=== PATIENT | male | born 1960 | race African-American/Black ===

== ENCOUNTER 2019-06-17 16:37 | Inpatient (IN) | payer BC ==
[2019-06-17] MEDS ORDERED: ACETAMINOPHEN 1000 MG/100 ML VIAL (NON FORMULARY) IVPB ONE (18:07)
--- NOTE | 2019-06-17 18:15 | PDOC ---
History of Present Illness - General Chief Complaint: Pain Stated Complaint: PAIN ON RIGHT SIDE Time Seen by Provider: 06/17/19 17:19 History Source: Patient Exam Limitations: No Limitations - History of Present Illness Initial Comments: 06/17/19 18:11 59 yo M with a hx of DM, HTN, and abnormal stress test 2 years ago (with no follow up) presents to the emergency department with left chest wall pain and RLQ pain that has been ongoing for 2 days. Per the patient, the left chest wall pain was gradual in onset, sharp in nature, consistent with his previous episodes of when he has "gas" and is non radiating. Denies worsening of pain with exertion. Denies concurrent SOB, lightheadedness, headache, and nausea/ vomiting. Concurrently, he is also having sharp RLQ pain without radiation that worsens with movement. Denies dysuria, hematuria, flank pain, back pain (lower and upper), constipation, hematochezia, and melena. Denies abdominal surgeries. Allergies: NKDA Past History - Past Medical History Allergies/Adverse Reactions: Allergies Allergy/AdvReac Type Severity Reaction Status Date / Time No Known Allergies Allergy Verified 06/17/19 16:45 Home Medications: Ambulatory Orders Acetaminophen [Tylenol .Regular Strength -] 325 mg PO Q6H PRN tablet 06/25/19 Amox-Tr/K Cl [Augmentin 875-125mg Tablet -] 1 tab PO BID@0800,1730 #20 tablet Miscellaneous Medical Supply [Glucometer Device] 1 each SQ ASDIR #1 kit Miscellaneous [employer] [Glucometer Test Strips #100] 1 each SQ ASDIR #1 box 06/25/19 Miscellaneous Medical Supply [Lancets] 1 each SQ ASDIR #1 box 06/25/19 Miscellaneous Medical Supply [Outpatient Order] 1 each ASDIR #1 misc metFORMIN HCL [Glucophage -] 1,000 mg PO BID@0700,1630 #60 tablet 06/25/19 COPD: No Diabetes: Yes (non compliant over 1 yr) - Psycho Social/Smoking Cessation Hx Smoking History: Never smoked Review of Systems - Review of Systems Able to Perform ROS?: Yes Is the patient limited Niuean proficient: No Constitutional: No: Chills, Diaphoresis, Fever, Weakness HEENTM: No: Eye Pain, Ear Pain, Nose Pain, Throat Pain, Mouth Pain Respiratory: No: Cough, Shortness of Breath, Hemoptysis Cardiac (ROS): Yes: Chest Pain. No: Lightheadedness, Palpitations, Chest Tightness ABD/GI: Yes: Abdominal cramping (rlq). No: Constipated, Diarrhea, Nausea, Poor Appetite, Poor Fluid Intake, Rectal Bleeding, Vomiting, Tarry Stools : No: Burning, Dysuria, Discharge, Flank Pain, Hematuria, Incontinence Musculoskeletal: No: Back Pain, Joint Pain, Neck Pain Integumentary: No: Bruising, Erythema, Rash Neurological: No: Headache, Ataxia Psychiatric: No: Change in Appetite Endocrine: No: Unexplained Weight Loss Hematologic/Lymphatic: No: Anemia *Physical Exam - Vital Signs Last Vital Signs Temp Pulse Resp BP Pulse Ox 98.2 F 125 H 20 136/91 100 06/17/19 16:42 06/17/19 16:42 06/17/19 16:42 06/17/19 16:42 06/17/19 16:42 - Physical Exam General Appearance: Yes: Nourished, Appropriately Dressed. No: Apparent Distress, Intoxicated HEENT: positive: EOMI, DORINA, Normal Voice, Symmetrical, Pharynx Normal, Hearing Grossly Normal. negative: Pale Conjunctivae, Scleral Icterus (R), Scleral Icterus (L), Muffled/Hoarse voice, Pharyngeal Erythema, Tonsillar Exudate, Tonsillar Erythema, Nasal Congestion, Rhinorrhea, Sinus Tenderness, Excessive drooling Neck: positive: Trachea midline, Supple. negative: Tender, Lymphadenopathy (R) , Lymphadenopathy (L), Tender lateral, Tender midline Respiratory/Chest: positive: Lungs Clear, Normal Breath Sounds. negative: Chest Tender, Respiratory Distress, Accessory Muscle Use Cardiovascular: positive: Regular Rhythm, S1, S2, Tachycardia. negative: Systolic Murmur Gastrointestinal/Abdominal: positive: Normal Bowel Sounds, Tender (rlq), Flat, Soft. negative: Guarding, Rebound Lymphatic: negative: Adenopathy Musculoskeletal: positive: Normal Inspection. negative: CVA Tenderness, Vertebral Tenderness Extremity: positive: Normal Capillary Refill, Normal Inspection, Normal Range of Motion. negative: Tender, Swelling, Calf Tenderness Integumentary: positive: Normal Color, Dry, Warm Neurologic: positive: Fully Oriented, Alert, Normal Mood/Affect ED Treatment Course - LABORATORY CBC & Chemistry Diagram: 06/25/19 07:18 06/25/19 07:18 - RADIOLOGY Radiology Studies Ordered: Category Date Time Status CHEST X-RAY PORTABLE* [RAD] Stat Radiology 06/17/19 18:06 Ordered Medical Decision Making - Medical Decision Making 59 yo M with a hx of DM, HTN, and abnormal stress test 2 years ago (with no follow up) presents to the emergency department with left chest wall pain and RLQ pain that has been ongoing for 2 days. Initial vitals: Initial Vital Signs Temp Pulse Resp BP Pulse Ox 98.2 F 125 H 20 136/91 100 06/17/19 16:42 06/17/19 16:42 06/17/19 16:42 06/17/19 16:42 06/17/19 16:42 Work up: ddx: patient presents with multiple complaints. rlq pain ddx: appendicitis vs UTI vs nephrolithiasis vs colitis vs msk strain vs incarcerated hernia. No hernia palpated on examination and focal tenderness in the RLQ. will obtain labs and CTAP. Chest pain ddx: ACS vs PNA vs costrochondritis vs pleuritis Laboratory Tests 06/17/19 06/17/19 06/17/19 18:30 18:30 18:30 WBC 16.5 H RBC 4.15 Hgb 13.4 Hct 40.0 MCV 96.4 H MCH 32.3 MCHC 33.5 RDW 13.1 Plt Count 352 MPV 7.7 Absolute Neuts (auto) 12.8 H Neutrophils % 77.5 Lymphocytes % 12.7 Monocytes % 9.3 Eosinophils % 0.3 Basophils % 0.2 Nucleated RBC % 0 PT with INR INR Sodium 134 L Potassium 4.2 Chloride 98 Carbon Dioxide 28 Anion Gap 9 BUN 13.7 Creatinine 1.0 Est GFR (CKD-EPI)AfAm 94.39 Est GFR (CKD-EPI)NonAf 81.44 Random Glucose 177 H Lactic Acid 1.5 Calcium 9.0 Magnesium 1.7 L Total Bilirubin 0.6 AST 14 L ALT 20 Alkaline Phosphatase 127 H Creatine Kinase 101 Troponin I < 0.02 Total Protein 8.1 Albumin 3.9 06/17/19 18:30 WBC RBC Hgb Hct MCV MCH MCHC RDW Plt Count MPV Absolute Neuts (auto) Neutrophils % Lymphocytes % Monocytes % Eosinophils % Basophils % Nucleated RBC % PT with INR 12.80 INR 1.08 Sodium Potassium Chloride Carbon Dioxide Anion Gap BUN Creatinine Est GFR (CKD-EPI)AfAm Est GFR (CKD-EPI)NonAf Random Glucose Lactic Acid Calcium Magnesium Total Bilirubin AST ALT Alkaline Phosphatase Creatine Kinase Troponin I Total Protein Albumin Leukocytosis noted on examination hypomagnesemia and normal lactic acid CT findings consistent with likely acute ruptured appendicitis with significant phlegmonous changes in the right lower quadrant mesenteric fat, normal visualization of the cecum and terminal ileum with nonvisualization of the appendix which is likely ruptured, enhancement in the base of the appendix is suspected, no appendicolith is seen. No signs of free air or free fluid in the deep pelvis with no periappendiceal loculated collections observed in the abdomen or pelvis. Inflammatory phlegmonous fluid is seen tracking in the posterior right retroperitoneum along the anterior margin of the right psoas muscle extending inferiorly into the right paracolic gutter. Dr. Ayala was contacted and made aware of the patient. patient started on zosyn and given morphine for analgesia. Patient to be admitted for ruptured appendicitis requiring IV abx and possible surgical intervention. eKG: sinus tachycardia with incomplete rbbb with no twi. no st elevations or depression cxr: within normal limits Dispo: Admit Discharge - Discharge Information Problems reviewed: Yes Clinical Impression/Diagnosis: Appendicitis - Follow up/Referral - Patient Discharge Instructions - Post Discharge Activity
[2019-06-17] MEDS ORDERED: ACETAMINOPHEN INJECTION 100 ML IVPB ONE (18:23)
[2019-06-17] MEDS ORDERED: SODIUM CHLORIDE 1,000 ML IV STA (18:39)
[2019-06-17] MEDS ORDERED: SODIUM CHLORIDE 0.9% 1000 ML INFUS.BAG IV ONE (19:15)
--- NOTE | 2019-06-17 19:15 | PDOC ---
Attending Attestation - Resident Resident Name: GenMilo - ED Attending Attestation I have performed the following: I have examined & evaluated the patient, The case was reviewed & discussed with the resident, I agree w/resident's findings & plan, Exceptions are as noted - HPI HPI: 06/17/19 19:10 59 yo male h/o dm htn famil h/o dm here with cough uri sxs, and now rlq pain x 2 day. no n/v. does have nasal congestions. pain is worse with movement and walking. no change to bm. no other mod factors. did take excedrin for pain earlier mild relief. does drink etoh often, not daily. no h/o etoh withdrawal. in addition c/o left lat chest wall pain. cough. thought it was gas. does have sick contact of nephew with cough congestion flu like sxs. no travel. no other complaints - Physicial Exam PE: 06/17/19 19:12 awake alert NAD awake lung clear bilat heart reg tachycardia. abd soft rlq ttp no rebound no guard. ext wwp. no cva tenderness. awake alert oriented x 3. - Medical Decision Making 06/17/19 19:13 59 yo male here with rlq pain. gaby pain. differential flu, cxr r/o pneumonia, cardiac work up. ct a/p r/o appendicitis. will trent require admission to tele r/o acs.
[2019-06-17 20:02] LABS: BASO % 0.2 % (0-2.0); EOS % 0.3 % (0-4.5); HEMOGLOBIN 13.4 GM/dL (11.7-16.9); LYMPH % 12.7 % (8-40); MCH 32.3 pg (25.7-33.7); MCHC 33.5 g/dl (32.0-35.9); MEAN CELL VOLUME 96.4 fl (80-96); MEAN PLT VOLUME 7.7 fl (7.5-11.1); MONO % 9.3 % (3.8-10.2); NEUT % 77.5 % (42.8-82.8); PLATELET COUNT 352 K/MM3 (134-434); RBC 4.15 M/mm3 (4.00-5.60); RDW 13.1 % (11.9-15.9); WHITE BLOOD COUNT 16.5 K/mm3 (4.0-10.0)
[2019-06-17] MEDS ORDERED: morphine CARPU-JECT 4 MG/1 ML DISP.SYRIN IVPUSH ONE (20:56)
[2019-06-17 20:57] LABS: INR 1.08 (0.83-1.09); PROTHROMBIN TIME (PATIENT) 12.8 SEC (9.7-13.0)
[2019-06-17] MEDS ORDERED: morphine SULFATE 4 MG/ML VIAL ONE (21:00)
[2019-06-17 21:30] LABS: ALBUMIN 3.9 g/dl (3.4-5.0); ALK PHOS 127 U/L (45-117); ANION GAP 9 MMOL/L (8-16); BILIRUBIN,TOTAL 0.6 mg/dL (0.2-1); BLOOD UREA NITROGEN 13.7 mg/dL (7-18); CHLORIDE 98 mmol/L (98-107); CO2 28 mmol/L (21-32); GLUCOSE,RANDOM 177 mg/dL (74-106); MAGNESIUM 1.7 mg/dL (1.8-2.4); POTASSIUM 4.2 mmol/L (3.5-5.1); SGOT/AST 14 U/L (15-37); SGPT/ALT 20 U/L (13-61); SODIUM 134 mmol/L (136-145); TOT PROT 8.1 g/dl (6.4-8.2)
[2019-06-17] MEDS ORDERED: PIPERACILLIN/TAZOB 4.5 GM 4.5 GM in DEXTROSE 5%-WATER 100 ML IVPB ONE (23:14)
[2019-06-18] MEDS ORDERED: PIPERACILLIN/TAZOB 4.5 GM 4.5 GM/100 ML BAG IVPB ONE (00:01)
[2019-06-18] MEDS: SODIUM CHLORIDE 1,000 ML IV SCH ×3 (00:10→23:15)
--- NOTE | 2019-06-18 00:18 | PN ---
Teaching Attending Note Name of Resident: Kailash Johnson ATTENDING PHYSICIAN STATEMENT I saw and evaluated the patient. I reviewed the resident's note and discussed the case with the resident. I agree with the resident's findings and plan as documented. SUBJECTIVE: 59-year-old male with history of diabetes, hypertension presenting complaining of left chest wall pain and right lower quadrant pain for 2 days. Sharp right lower quadrant pain without radiation that worsens with movement. Denies any dysuria, back pain, prior abdominal surgeries. OBJECTIVE: Last Vital Signs Temp Pulse Resp BP Pulse Ox 98.2 F 118 H 20 110/61 97 06/17/19 16:42 06/17/19 21:10 06/17/19 21:10 06/17/19 21:10 06/17/19 21:10 GENERAL: Well developed, well nourished. Awake and alert. No acute distress. HEENT: Normocephalic, atraumatic. PERRLA, EOMI. No conjunctival pallor. Sclera are non- icteric. Moist mucous membranes. Oropharynx is clear. NECK: Supple. Full ROM. No JVD. Carotid pulses 2+ and symmetric, without bruits. No thyromegaly. No lymphadenopathy. CARDIOVASCULAR: Regular rate and rhythm. No murmurs, rubs, or gallops. Distal pulses are 2+ and symmetric. PULMONARY: No evidence of respiratory distress. Lungs clear to auscultation bilaterally. No wheezing, rales or rhonchi. ABDOMINAL: Soft. Right lower quadrant tenderness to palpation Non-distended. No rebound or guarding. No organomegaly. Normoactive bowel sounds. MUSCULOSKELETAL Normal range of motion at all joints. No bony deformities or tenderness. No CVA tenderness. EXTREMITIES: No cyanosis. No clubbing. No edema. No calf tenderness. SKIN: Warm and dry. Normal capillary refill. No rashes. No jaundice. PSYCHIATRIC: Cooperative. Good eye contact. Appropriate mood and affect. Abnormal Lab Results 06/17/19 06/17/19 18:30 18:30 WBC 16.5 H MCV 96.4 H Absolute Neuts (auto) 12.8 H Sodium 134 L Random Glucose 177 H Magnesium 1.7 L AST 14 L Alkaline Phosphatase 127 H Imaging studies reviewed CT findings consistent with likely acute ruptured appendicitis with significant phlegmon minus changes in the right lower quadrant, normal visualization of cecum and terminal ileum with nonvisualization of the appendix which is likely ruptured. No signs of free air or free fluid in the deep pelvis with no periappendiceal loculated collections observed in abdomen or pelvis. Inflammatory phlegmonous fluid is seen tracking posterior right retroperitoneum along the anterior margin of the right psoas muscle extending inferiorly into the right paracolic gutter. ASSESSMENT AND PLAN: 59-year-old male with sepsis secondary to ruptured appendix with tachycardia, leukocytosis. Hyponatremia, hypomagnesemia, mildly elevated alkaline phosphatase. As per imaging on a call read, no free air was seen under diaphragm therefore low suspicion for overt perforation. Admit to [facility] N.p.o. IV fluid hydration Blood cultures x2 Morphine IV as needed Surgery consult for appendectomy PT, PTT, type and screen Zosyn IV empirically Infectious disease consultation Monitor vital signs closely EKG Supplement magnesium NovoLog sliding scale A1c Heparin subcutaneously for DVT prophylaxis
[2019-06-18 00:20] LABS: URINE APPEARANCE CLEAR; URINE BILIRUBIN NEGATIVE (NEGATIVE); URINE COLOR YELLOW; URINE KETONE TRACE (NEGATIVE)
[2019-06-18 00:21] LABS: URINE GLUCOSE (UA) 2+ (NEGATIVE); URINE LEUK ESTERASE NEGATIVE (NEGATIVE); URINE NITRITE NEGATIVE (NEGATIVE); URINE PROTEIN NEGATIVE (NEGATIVE)
--- NOTE | 2019-06-18 00:45 | HP ---
CHIEF COMPLAINT: RLQ abdominal pain for 2 days Lt sided chest pain that he has had for the past several months, more frequent for the past 5 days PCP: None HISTORY OF PRESENT ILLNESS: This is a 59 year old male with PMH of DM. He presented to the ER with complaints of RLQ abdominal pain for the past 2 days and intermittent left sided chest pain that he has had for the past several months, more frequent for the past 5 days. The abdominal pain was limited to the RLQ, sudden in onset, constant in frequency but varying in intensity between 5-7/10. He describes it as a sharp pain, non radiating, with no aggravated or alleviating factors. He took Motrin to help with the pain, which did not help with his symptoms. He endorses associated dizziness, and one episode of NBNB vomiting (which he attributes to consuming 2 shots of vodka on an empty stomach), but no fevers, chills, nausea, diarrhea, SOB, headaches, dysuria, or hematuria. He also endorses left sided chest pain for the past several months, but more frequent for the past 5 days. The episodes last a few seconds, brought on by exercise, and resolved by resting. He states that he has had a cold for the past 1 week, not associated with a cough or SOB. He has been taking Nyquil for the cold. He had a stress test done 2 years ago ([facility], located at [facility]). His physician called and asked him to make a [id number] appointment for abnormal stress test results, but he never followed up. The patient has a history of DM, and was started on metformin. He has not taken the metformin for the past several weeks because he believes it was making him lose weight. He does not monitor his glucose at home, does not see a cell support operator , and last saw an director of archives 2 years ago. He was last hospitalized for a left sided lip abscess 3 years ago. ER course was notable for: (1) Trop - (2) CT AP: Ruptured appendicitis, phlegmon formation, no free air (3) Surgery consulted, will see patient in AM (4) WBC 16.5, Zosyn started Recent Travel: denies PAST MEDICAL HISTORY: See HPI PAST SURGICAL HISTORY: None Social History: Smoking: A few cigars/month Alcohol: Few beers/ month Drugs: denies Allergies No Known Allergies Allergy (Verified 02/09/20 16:45) HOME MEDICATIONS: REVIEW OF SYSTEMS CONSTITUTIONAL: Absent: fever, chills, diaphoresis, generalized weakness, malaise, loss of appetite, weight change HEENT: Absent: rhinorrhea, nasal congestion, throat pain, throat swelling, difficulty swallowing, mouth swelling, ear pain, eye pain, visual changes CARDIOVASCULAR: chest pain Absent: chest pain, syncope, palpitations, irregular heart rate, lightheadedness , peripheral edema RESPIRATORY: Absent: cough, shortness of breath, dyspnea with exertion, orthopnea, wheezing, stridor, hemoptysis GASTROINTESTINAL: abdominal pain Absent: abdominal pain, abdominal distension, nausea, vomiting, diarrhea, constipation, melena, hematochezia GENITOURINARY: Absent: dysuria, frequency, urgency, hesitancy, hematuria, flank pain, genital pain MUSCULOSKELETAL: Absent: myalgia, arthralgia, joint swelling, back pain, neck pain SKIN: Absent: rash, itching, pallor HEMATOLOGIC/IMMUNOLOGIC: Absent: easy bleeding, easy bruising, lymphadenopathy, frequent infections ENDOCRINE: Absent: unexplained weight gain, unexplained weight loss, heat intolerance, cold intolerance NEUROLOGIC: Absent: headache, focal weakness or paresthesias, dizziness, unsteady gait, seizure, mental status changes, bladder or bowel incontinence PSYCHIATRIC: Absent: anxiety, depression, suicidal or homicidal ideation, hallucinations. PHYSICAL EXAMINATION Vital Signs - 24 hr 06/17/19 06/17/19 06/17/19 16:42 18:50 21:10 Temperature 98.2 F Pulse Rate 125 H Pulse Rate [ 118 H Left Radial] Respiratory 20 20 Rate Blood Pressure 136/91 Blood Pressure 110/61 [Right Arm] O2 Sat by Pulse 100 99 97 Oximetry (%) GENERAL: Awake, alert, and fully oriented, in no acute distress. HEAD: Normal with no signs of trauma. EYES: Pupils equal, round and reactive to light, extraocular movements intact, sclera anicteric, conjunctiva clear. No lid lag. EARS, NOSE, THROAT: Ears normal, nares patent, oropharynx clear without exudates. Moist mucous membranes. NECK: Normal range of motion, supple without lymphadenopathy, JVD, or masses. LUNGS: Breath sounds equal, clear to auscultation bilaterally. No wheezes, and no crackles. No accessory muscle use. HEART:Tachycardic with regular rhythm, no murmurs ABDOMEN: Soft, tender to palpation in RLQ, no rebound tenderness, Rovsing's +, Oh's - MUSCULOSKELETAL: Normal range of motion at all joints. No bony deformities or tenderness. No CVA tenderness. UPPER EXTREMITIES: 2+ pulses, warm, well-perfused. No cyanosis. No clubbing. No peripheral edema. LOWER EXTREMITIES: 2+ pulses, warm, well-perfused. No calf tenderness. No peripheral edema. NEUROLOGICAL: Cranial nerves II-XII intact. Normal speech PSYCHIATRIC: Cooperative. Good eye contact. Appropriate mood and affect. SKIN: Warm, dry, normal turgor, no rashes or lesions noted, normal capillary refill. Laboratory Results - last 24 hr 06/17/19 06/17/19 06/17/19 18:30 18:30 18:30 WBC 16.5 H RBC 4.15 Hgb 13.4 Hct 40.0 MCV 96.4 H MCH 32.3 MCHC 33.5 RDW 13.1 Plt Count 352 MPV 7.7 Absolute Neuts (auto) 12.8 H Neutrophils % 77.5 Lymphocytes % 12.7 Monocytes % 9.3 Eosinophils % 0.3 Basophils % 0.2 Nucleated RBC % 0 PT with INR INR Sodium 134 L Potassium 4.2 Chloride 98 Carbon Dioxide 28 Anion Gap 9 BUN 13.7 Creatinine 1.0 Est GFR (CKD-EPI)AfAm 94.39 Est GFR (CKD-EPI)NonAf 81.44 Random Glucose 177 H Lactic Acid 1.5 Calcium 9.0 Magnesium 1.7 L Total Bilirubin 0.6 AST 14 L ALT 20 Alkaline Phosphatase 127 H Creatine Kinase 101 Troponin I < 0.02 Total Protein 8.1 Albumin 3.9 Urine Color Urine Appearance Urine pH Ur Specific [place] Urine Protein Urine Glucose (UA) Urine Ketones Urine Blood Urine Nitrite Urine Bilirubin Urine Urobilinogen Ur Leukocyte Esterase Influenza A (Rapid) Influenza B (Rapid) 06/17/19 06/17/19 06/17/19 18:30 20:58 23:14 WBC RBC Hgb Hct MCV MCH MCHC RDW Plt Count MPV Absolute Neuts (auto) Neutrophils % Lymphocytes % Monocytes % Eosinophils % Basophils % Nucleated RBC % PT with INR 12.80 INR 1.08 Sodium Potassium Chloride Carbon Dioxide Anion Gap BUN Creatinine Est GFR (CKD-EPI)AfAm Est GFR (CKD-EPI)NonAf Random Glucose Lactic Acid Calcium Magnesium Total Bilirubin AST ALT Alkaline Phosphatase Creatine Kinase Troponin I Total Protein Albumin Urine Color Yellow Urine Appearance Clear Urine pH 7.0 Ur Specific [place] 1.064 H Urine Protein Negative Urine Glucose (UA) 2+ H Urine Ketones Trace H Urine Blood Negative Urine Nitrite Negative Urine Bilirubin Negative Urine Urobilinogen 1.0 Ur Leukocyte Esterase Negative Influenza A (Rapid) Negative Influenza B (Rapid) Negative ASSESSMENT/PLAN: 59 year old male with PMH of DM. He presented to the ER with complaints of RLQ abdominal pain for the past 2 days and intermittent left sided chest pain that he has had for the past several months, more frequent for the past 5 days. Found to have perforated appendicitis on CT AP. #Perforated appendicitis - CT AP: Ruptured appendicitis, phlegmon formation, no free air - Appendicial perforation with phlegmon and with no signs of free perforation, peritonitis, or abscess may initially be managed conservatively - Surgery consulted (Dr. Ayala), will see patient in AM - NPO with IV fluids, started on N/S @ 120. Fond to be hypotensive arondd 90/60 at 3AM, given 1L N/S bolus After 2L N/S, B/P improved to 110/90s, pt. still complaining of pain, Dr. Shelby called and reported to be on his way - Zosyn 3.375gm Q6H started - Blood, urine cx ordered - Morphine 4mg Q4H ordered - PT, PTT, Type and screen ordered for possible surgery - ID consulted #Chest pain - Trop negative, EKG shows sinus tachy with no ST, T wave abnormalities - Will r/o ACS - Hx of abnormal stress test - Tele monitoring - Cardio consult placed - Repeat EKG and trops AM #Hx of DM - BGM, ISS ACHS - HbA1c ordered #FEN - IV N/S @ 120, given 1L bolus - Mg 1.7, given 1gm Mg - NPO until surgery consult #DVT - SCDs, Holding chemical AC for possible surgery in AM Visit type - Emergency Visit Emergency Visit: Yes ED Registration Date: 06/17/19 Care time: The patient presented to the Emergency Department on the above date and was hospitalized for further evaluation of their emergent condition. - New Patient This patient is new to me today: Yes Date on this admission: 06/26/19 - Critical Care Critical Care patient: No ATTENDING PHYSICIAN STATEMENT I saw and evaluated the patient. I reviewed the resident's note and discussed the case with the resident. I agree with the resident's findings and plan as documented. SUBJECTIVE: OBJECTIVE: ASSESSMENT AND PLAN:
[2019-06-18] MEDS ORDERED: ACETAMINOPHEN 1000 MG/100 ML VIAL (NON FORMULARY) IVPB PRN (01:07)
[2019-06-18] MEDS ORDERED: MAGNESIUM SULF 50% (8.12 MEQ/2 ML-1 GM VIAL) IVPB ONE (01:45)
[2019-06-18] MEDS ORDERED: MAGNESIUM 1GM/D5W - 1 GM/100 ML IVPB IVPB ONE (02:15)
[2019-06-18] MEDS ORDERED: morphine SULFATE 4 MG/ML VIAL ONE (02:16)
[2019-06-18] MEDS ORDERED: VANCOMYCIN 1,000 MG in DEXTROSE 5%-WATER - 250 ML IVPB ONE (03:22)
[2019-06-18] MEDS ORDERED: SODIUM CHLORIDE 0.9% 500 ML INFUS.BAG IV ONE (03:24)
--- NOTE | 2019-06-18 03:25 | PDOC ---
*Physical Exam - Vital Signs Last Vital Signs Temp Pulse Resp BP Pulse Ox 101.4 F H 128 H 20 93/58 L 97 06/18/19 02:25 06/18/19 02:25 06/18/19 02:25 06/18/19 02:25 06/18/19 02:25 ED Treatment Course - LABORATORY CBC & Chemistry Diagram: 06/23/19 07:50 06/23/19 07:50 - ADDITIONAL ORDERS Additional order review: Laboratory Results 06/17/19 06/17/19 06/17/19 18:30 18:30 18:30 PT with INR 12.80 INR 1.08 Sodium 134 L Potassium 4.2 Chloride 98 Carbon Dioxide 28 Anion Gap 9 BUN 13.7 Creatinine 1.0 Est GFR (CKD-EPI)AfAm 94.39 Est GFR (CKD-EPI)NonAf 81.44 Random Glucose 177 H Lactic Acid 1.5 Calcium 9.0 Magnesium 1.7 L Total Bilirubin 0.6 AST 14 L ALT 20 Alkaline Phosphatase 127 H Creatine Kinase 101 Troponin I < 0.02 Total Protein 8.1 Albumin 3.9 06/17/19 18:30 RBC 4.15 MCV 96.4 H MCHC 33.5 RDW 13.1 MPV 7.7 Neutrophils % 77.5 Lymphocytes % 12.7 Monocytes % 9.3 Eosinophils % 0.3 Basophils % 0.2 - Medications Given in the ED: ED Medications Discontinued Medications Generic Name Dose Route Start Last Admin Trade Name Freq PRN Reason Stop Dose Admin Acetaminophen 1,000 mg 06/17/19 18:07 06/17/19 18:52 Ofirmev Injection - IVPB 06/17/19 18:08 1,000 mg ONCE ONE Administration Sodium Chloride 1,000 mls @ 1,000 mls/hr 06/17/19 18:39 06/17/19 18:53 Normal Saline - IV 06/17/19 19:38 1,000 mls/hr ASDIR STA Administration Piperacillin Sod/Tazobactam 100 mls @ 200 mls/hr 06/17/19 23:14 06/18/19 00: 10 Sod 4.5 gm/ Dextrose IVPB 06/17/19 23:43 200 mls/hr ONCE ONE Administration Protocol Magnesium Sulfate 1 gm 06/18/19 01:45 06/18/19 02:25 Magnesium Sulfate IVPB 06/18/19 01:46 1 gm ONCE ONE Administration Morphine Sulfate 4 mg 06/17/19 20:56 06/17/19 21:13 Morphine Injection - IVPUSH 06/17/19 20:57 4 mg ONCE ONE Administration Sodium Chloride 1,000 ml 06/17/19 19:15 06/17/19 21:13 Normal Saline - IV 06/17/19 19:16 1,000 ml ONCE ONE Administration Medical Decision Making - Medical Decision Making 06/18/19 03:24 Pt boarded in the ER; tachycardic hypotensive, ruptured appendix. Surg aware and hospitalists aware; however I see only zosyn given. I am adding VANCO 1g and NSS 1L. Febrile; he has ofirmev and zosyn on as Q6hr meds. 06/18/19 03:26 Pt has been admitted since before I came to the ER. Discharge - Discharge Information Problems reviewed: Yes Clinical Impression/Diagnosis: Appendicitis - Follow up/Referral - Patient Discharge Instructions - Post Discharge Activity
[2019-06-18] MEDS ORDERED: VANCOMYCIN 1 GRAM (PRE-DOCKED) 1,000 MG/250 ML BAG IVPB ONE (05:11)
[2019-06-18] MEDS ORDERED: SODIUM CHLORIDE 500 ML IV STA ×2 (05:29→06:02)
[2019-06-18] MEDS ORDERED: PIPERACILLIN/TAZOB 3.375 GM 3.375 GM/50 ML BAG IVPB ONE (06:11)
[2019-06-18] MEDS: PIPERACILLIN/TAZOB 3.375 GM 3.375 GM in DEXTROSE 5%-WATER - 50 ML IVPB SCH ×3 (06:32→15:00)
--- NOTE | 2019-06-18 07:12 | CONSULT ---
Consult Consult Specialty:: surgery Reason for Consultation:: abd pain - History of Present Illness History of Present Illness: 59 yr old with hx of DM presents with 2-3 day hx of Abdominal pain localized to the RLQ associated with fever - History Source History Provided By: Patient - Smoking History Smoking history: Never smoked Home Medications - Allergies Allergies/Adverse Reactions: Allergies Allergy/AdvReac Type Severity Reaction Status Date / Time No Known Allergies Allergy Verified 06/17/19 16:45 Physical Exam Vital Signs: Vital Signs Temperature 99.1 F 06/18/19 06:30 Pulse Rate 108 H 06/18/19 06:30 Respiratory Rate 20 06/18/19 06:30 Blood Pressure 109/67 06/18/19 06:30 O2 Sat by Pulse Oximetry (%) 96 06/18/19 06:30 Gastrointestinal: Yes: Other (Localized RLQ tenderness with guarding) Labs: CBC, BMP 06/17/19 18:30 06/17/19 18:30 Imaging - Results Cat Scan: Report Reviewed, Image Reviewed Problem List - Problems (1) Acute appendicitis with appendiceal abscess Code(s): K35.33 - ACUTE APPENDICITIS WITH PERF AND LOC PERITONITIS, WITH ABSCS Assessment/Plan 59 yr old diabetic with ruptured apendicittis with associated phlegmon/ abcess recommendation for treatment Broad spectrum antibiotics Hydration Close monitoring of is and os IR consultation for percutaneous drainage surgery at this atage would not be useful plan for interval appendectomy
[2019-06-18] MEDS: INSULIN SLIDING SCALE (NOVOLOG) 1 VIAL SQ SCH ×4 (07:55→21:12)
[2019-06-18 08:06] LABS: INR 1.17 (0.83-1.09); PROTHROMBIN TIME (PATIENT) 13.8 SEC (9.7-13.0)
[2019-06-18 08:09] LABS: ACTIVATED PTT 34.4 SECONDS (25.2-36.5)
[2019-06-18] MEDS ORDERED: PIPERACILLIN/TAZOB 3.375 GM 3.375 GM in DEXTROSE 5%-WATER - 50 ML IVPB SCH (09:00)
--- NOTE | 2019-06-18 09:02 | EKG ---
Test Reason : Blood Pressure : / mmHG Vent. Rate : 122 BPM Atrial Rate : 122 BPM P-R Int : 170 ms QRS Dur : 082 ms QT Int : 298 ms P-R-T Axes : 058 -53 031 degrees QTc Int : 424 ms SINUS TACHYCARDIA LEFT ANTERIOR FASCICULAR BLOCK INCOMPLETE RIGHT BUNDLE BRANCH BLOCK ABNORMAL ECG WHEN COMPARED WITH ECG OF 17-JUN-2019 18:23, NO SIGNIFICANT CHANGE WAS FOUND Confirmed by Lacy Wright ([id number]) on 06/18/2019 9:02:26 AM Referred By: Confirmed By:Lacy Wright
--- NOTE | 2019-06-18 09:08 | CON.CARD ---
Consult Consult Specialty:: CV - History of Present Illness Chief Complaint: abd pain History of Present Illness: 59 yo male here with RLQ abd pain. diagnosed in ER with ruptured appendicitis. seen by surgery who stated no role for surgery at this stage of illness, rec percutaneous IR drainage of abscess. pt also reported left sided chest pain for the past several months, but more frequent for the past 5 days. The episodes last a few seconds, brought on by exercise, and resolved by resting. location is lateral chest near L axillary line, radiates to pectoral and around to scapular region--RELIEVED BY PASSING GAS. has had this pain MOST OF HIS ADULT LIFE, intermittently--no new features, mild severity. no cp currently no sob, orthopnea no palp in ER: mildly hypotensive, tachycardic. febrile. normal sats. lactate normal. trop neg states he has murmur since childhood. had testing at [facility] approx 2 yrs ago, did not f/u as advised PMH: DM - Smoking History Smoking history: Never smoked Home Medications - Allergies Allergies/Adverse Reactions: Allergies Allergy/AdvReac Type Severity Reaction Status Date / Time No Known Allergies Allergy Verified 06/17/19 16:45 Family Medical History Family History: Denies (no known CMP) Review of Systems - Review of Systems Constitutional: denies: Chills, Fever Eyes: denies: Eye Pain HENT: denies: Nasal Congestion Neck: denies: Stiffness Cardiovascular: denies: Palpitations Respiratory: denies: Orthopnea, PND Gastrointestinal: denies: Diarrhea, Rectal Bleeding Genitourinary: denies: Burning, Hematuria Musculoskeletal: denies: Muscle Pain Integumentary: denies: Rash Neurological: denies: Numbness, Seizure, Syncope Endocrine: denies: Excessive Sweating Hematology/Lymphatic: denies: Excessive Bleeding Vital Signs: Vital Signs Temperature 98 F 06/18/19 07:20 Pulse Rate 104 H 06/18/19 07:20 Respiratory Rate 22 H 06/18/19 07:20 Blood Pressure 112/74 06/18/19 07:20 O2 Sat by Pulse Oximetry (%) 96 06/18/19 07:20 Constitutional: Yes: Well Nourished, No Distress Eyes: No: Sclera Icterus HENT: No: Nasal Congestion Neck: No: Decreased ROM Respiratory: Yes: CTA Bilaterally. No: Accessory Muscle Use, Rales, Wheezes Gastrointestinal: Yes: Normal Bowel Sounds. No: Distention, Hepatomegaly, Palpable Mass, Tenderness Cardiovascular: Yes: Regular Rate and Rhythm JVD: No Carotid Bruit: No PMI: Non-Displaced Heart Sounds: Yes: S1, S2. No: Gallop Murmur: Yes: Systolic Murmur (brief CARISSA at apex (2/6) > RUSB). No: Diastolic Murmur Musculoskeletal: Yes: Other (No kyphosis) Extremities: No: Cool, Cyanosis Edema: No Peripheral Pulses: 2+ Left Carotid, 2+ Right Carotid, 2+ Left Doralis Pedis, 2+ Right Dorsalis Pedis Integumentary: No: Jaundice Neurological: Yes: Alert, Oriented (x3) Psychiatric: No: Agitated - Other Data Labs, Other Data: CBC, BMP 06/17/19 18:30 06/17/19 18:30 INR, PTT INR 1.17 (0.83-1.09) H 06/18/19 06:20 Troponin, BNP 06/17/19 18:30 Troponin I < 0.02 Troponin, BNP 06/17/19 18:30 Troponin I < 0.02 Assessment/Plan ECG #1: sinus tach, LAFB, no path q's, no ST-T #2: no change CXR: clear lungs/pleura appendicitis, ruptured/preop CV eval -per surgery, plan is IR drainage -continue IVF -remainder of plan per hospitalist -Revised CVRI = 0, normal functional capacity. no s/sx of active ischemia/chf. as long as 2nd trop negative, pt is at acceptable CV risk for invasive procedures/anesthesia (do not need to wait for echo in light of benign murmur features and no signs chf) chest pain: -acute on chronic sx's -trop neg x 1--rpt ordered -ecg nonischemic -longstanding sx, c/w gas/bloating--relieved by passing gas. no new features. -defer stress testing. murmur: -soft murmur, unusual features/locatoin. -f/u prior echo done at [facility]. rpt study here -outpt f/u rec'd with us--he agrees
--- NOTE | 2019-06-18 09:33 | EKG ---
Test Reason : Blood Pressure : / mmHG Vent. Rate : 121 BPM Atrial Rate : 121 BPM P-R Int : 168 ms QRS Dur : 086 ms QT Int : 300 ms P-R-T Axes : 054 -50 036 degrees QTc Int : 426 ms SINUS TACHYCARDIA INCOMPLETE RIGHT BUNDLE BRANCH BLOCK LEFT ANTERIOR FASCICULAR BLOCK ABNORMAL ECG NO PREVIOUS ECGS AVAILABLE Confirmed by Lacy Wright ([id number]) on 06/18/2019 9:32:53 AM Referred By: Confirmed By:Lacy Wright
--- NOTE | 2019-06-18 12:31 | CONSULT ---
Consultation: REQUESTING PROVIDER: Dr. upton CONSULT REQUEST: ICU consult HISTORY OF PRESENT ILLNESS: 59 y/o male with PMH of DM presents to the ED with complaints of RLQ pain for the past 2 days that started suddenly- he denies having nausea/vomiting or diarrhea, the pain got highly severe and which prompted him to come to the ED. in the ED- he 3was found to be tachycardic, febrile to 101.4 and slightly hypotensive. labs notable for a WBC of 16.5; ab/pelvic CT done showing a ruptured appendix with phlegmon however no free air was seen; patient was given vanc/zosyn, morphine for pain and has received 3L of fluids- REVIEW OF SYSTEMS: CONSTITUTIONAL: Absent: fever, chills, diaphoresis, generalized weakness, malaise, loss of appetite, weight change HEENT: Absent: rhinorrhea, nasal congestion, throat pain, throat swelling, difficulty swallowing, mouth swelling, ear pain, eye pain, visual changes CARDIOVASCULAR: Absent: chest pain, syncope, palpitations, irregular heart rate, lightheadedness , peripheral edema RESPIRATORY: Absent: cough, shortness of breath, dyspnea with exertion, orthopnea, wheezing, stridor, hemoptysis GASTROINTESTINAL: Present: abdominal pain Absent: abdominal distension, nausea, vomiting, diarrhea, constipation, melena, hematochezia GENITOURINARY: Absent: dysuria, frequency, urgency, hesitancy, hematuria, flank pain, genital pain MUSCULOSKELETAL: Absent: myalgia, arthralgia, joint swelling, back pain, neck pain SKIN: Absent: rash, itching, pallor HEMATOLOGIC/IMMUNOLOGIC: Absent: easy bleeding, easy bruising, lymphadenopathy, frequent infections ENDOCRINE: Absent: unexplained weight gain, unexplained weight loss, heat intolerance, cold intolerance NEUROLOGIC: Absent: headache, focal weakness or paresthesias, dizziness, unsteady gait, seizure, mental status changes, bladder or bowel incontinence PSYCHIATRIC: Absent: anxiety, depression, suicidal or homicidal ideation, hallucinations. PHYSICAL EXAMINATION Vital Signs - 24 hr 06/17/19 06/17/19 06/17/19 16:42 18:50 20:00 Temperature 98.2 F Pulse Rate 125 H Pulse Rate [ Left Radial] Respiratory 20 Rate Blood Pressure 136/91 Blood Pressure [Right Arm] O2 Sat by Pulse 100 99 96 Oximetry (%) 06/17/19 06/18/1906/18/20 21:10 00:41 02:25 Temperature 101.4 F H Pulse Rate Pulse Rate [ 118 H 120 H 128 H Left Radial] Respiratory 20 18 20 Rate Blood Pressure Blood Pressure 110/61 126/75 93/58 L [Right Arm] O2 Sat by Pulse 97 99 97 Oximetry (%) 06/18/19 06/18/19 06/18/19 05:27 06:30 07:20 Temperature 98.6 F 99.1 F 98 F Pulse Rate Pulse Rate [ 112 H 108 H 104 H Left Radial] Respiratory 15 20 22 H Rate Blood Pressure Blood Pressure 90/56 L 109/67 112/74 [Right Arm] O2 Sat by Pulse 96 96 96 Oximetry (%) 06/18/19 06/18/19 10:45 11:30 Temperature Pulse Rate Pulse Rate [ 113 H 111 H Left Radial] Respiratory 27 H 21 H Rate Blood Pressure Blood Pressure 108/70 127/79 [Right Arm] O2 Sat by Pulse 99 97 Oximetry (%) GENERAL: Awake, alert, and fully oriented, in slight acute distress. EYES:PEERLA; EOMI; no scleral icterus . NECK:no JVD; no lymphadenopathy LUNGS:CTA B/L; no rales, rhonchi or wheezing HEART: Regular rate and rhythm, normal S1 and S2 without murmur, rub or gallop. ABDOMEN: Soft, + RLQ tenderness + Mcburneys sign + Rovsings MUSCULOSKELETAL: Normal range of motion at all joints. No bony deformities or tenderness. No CVA tenderness. EXTREMITIES: warm; well-perfused no clubbing/cyanosis or edema NEUROLOGICAL: Cranial nerves II-XII intact. Normal speech. Normal gait. SKIN: Warm, dry, normal turgor, no rashes or lesions noted. Laboratory Results - last 24 hr 06/17/19 06/17/19 06/17/19 18:30 18:30 18:30 WBC 16.5 H RBC 4.15 Hgb 13.4 Hct 40.0 MCV 96.4 H MCH 32.3 MCHC 33.5 RDW 13.1 Plt Count 352 MPV 7.7 Absolute Neuts (auto) 12.8 H Neutrophils % 77.5 Lymphocytes % 12.7 Monocytes % 9.3 Eosinophils % 0.3 Basophils % 0.2 Nucleated RBC % 0 PT with INR INR PTT (Actin FS) Sodium 134 L Potassium 4.2 Chloride 98 Carbon Dioxide 28 Anion Gap 9 BUN 13.7 Creatinine 1.0 Est GFR (CKD-EPI)AfAm 94.39 Est GFR (CKD-EPI)NonAf 81.44 POC Glucometer Random Glucose 177 H Hemoglobin A1c % Lactic Acid 1.5 Calcium 9.0 Magnesium 1.7 L Total Bilirubin 0.6 AST 14 L ALT 20 Alkaline Phosphatase 127 H Creatine Kinase 101 Troponin I < 0.02 Total Protein 8.1 Albumin 3.9 Urine Color Urine Appearance Urine pH Ur Specific [place] Urine Protein Urine Glucose (UA) Urine Ketones Urine Blood Urine Nitrite Urine Bilirubin Urine Urobilinogen Ur Leukocyte Esterase Influenza A (Rapid) Influenza B (Rapid) Blood Type Antibody Screen 06/17/19 06/17/19 06/17/19 18:30 20:58 23:14 WBC RBC Hgb Hct MCV MCH MCHC RDW Plt Count MPV Absolute Neuts (auto) Neutrophils % Lymphocytes % Monocytes % Eosinophils % Basophils % Nucleated RBC % PT with INR 12.80 INR 1.08 PTT (Actin FS) Sodium Potassium Chloride Carbon Dioxide Anion Gap BUN Creatinine Est GFR (CKD-EPI)AfAm Est GFR (CKD-EPI)NonAf POC Glucometer Random Glucose Hemoglobin A1c % Lactic Acid Calcium Magnesium Total Bilirubin AST ALT Alkaline Phosphatase Creatine Kinase Troponin I Total Protein Albumin Urine Color Yellow Urine Appearance Clear Urine pH 7.0 Ur Specific [place] 1.064 H Urine Protein Negative Urine Glucose (UA) 2+ H Urine Ketones Trace H Urine Blood Negative Urine Nitrite Negative Urine Bilirubin Negative Urine Urobilinogen 1.0 Ur Leukocyte Esterase Negative Influenza A (Rapid) Negative Influenza B (Rapid) Negative Blood Type Antibody Screen 06/18/19 06/18/19 06/18/19 06:20 06:20 06:20 WBC RBC Hgb Hct MCV MCH MCHC RDW Plt Count MPV Absolute Neuts (auto) Neutrophils % Lymphocytes % Monocytes % Eosinophils % Basophils % Nucleated RBC % PT with INR 13.80 H INR 1.17 H PTT (Actin FS) 34.4 Sodium Potassium Chloride Carbon Dioxide Anion Gap BUN Creatinine Est GFR (CKD-EPI)AfAm Est GFR (CKD-EPI)NonAf POC Glucometer Random Glucose Hemoglobin A1c % 9.9 H Lactic Acid Calcium Magnesium Total Bilirubin AST ALT Alkaline Phosphatase Creatine Kinase Troponin I Total Protein Albumin Urine Color Urine Appearance Urine pH Ur Specific [place] Urine Protein Urine Glucose (UA) Urine Ketones Urine Blood Urine Nitrite Urine Bilirubin Urine Urobilinogen Ur Leukocyte Esterase Influenza A (Rapid) Influenza B (Rapid) Blood Type O POSITIVE Antibody Screen Negative 06/18/19 06/18/19 06/18/19 06:45 07:53 10:08 WBC RBC Hgb Hct MCV MCH MCHC RDW Plt Count MPV Absolute Neuts (auto) Neutrophils % Lymphocytes % Monocytes % Eosinophils % Basophils % Nucleated RBC % PT with INR INR PTT (Actin FS) Sodium Potassium Chloride Carbon Dioxide Anion Gap BUN Creatinine Est GFR (CKD-EPI)AfAm Est GFR (CKD-EPI)NonAf POC Glucometer 203 Random Glucose Hemoglobin A1c % Lactic Acid 0.9 Calcium Magnesium Total Bilirubin AST ALT Alkaline Phosphatase Creatine Kinase Troponin I < 0.02 Total Protein Albumin Urine Color Urine Appearance Urine pH Ur Specific [place] Urine Protein Urine Glucose (UA) Urine Ketones Urine Blood Urine Nitrite Urine Bilirubin Urine Urobilinogen Ur Leukocyte Esterase Influenza A (Rapid) Influenza B (Rapid) Blood Type Antibody Screen 06/18/19 11:17 WBC RBC Hgb Hct MCV MCH MCHC RDW Plt Count MPV Absolute Neuts (auto) Neutrophils % Lymphocytes % Monocytes % Eosinophils % Basophils % Nucleated RBC % PT with INR INR PTT (Actin FS) Sodium Potassium Chloride Carbon Dioxide Anion Gap BUN Creatinine Est GFR (CKD-EPI)AfAm Est GFR (CKD-EPI)NonAf POC Glucometer 212 Random Glucose Hemoglobin A1c % Lactic Acid Calcium Magnesium Total Bilirubin AST ALT Alkaline Phosphatase Creatine Kinase Troponin I Total Protein Albumin Urine Color Urine Appearance Urine pH Ur Specific [place] Urine Protein Urine Glucose (UA) Urine Ketones Urine Blood Urine Nitrite Urine Bilirubin Urine Urobilinogen Ur Leukocyte Esterase Influenza A (Rapid) Influenza B (Rapid) Blood Type Antibody Screen Active Medications Generic Name Dose Route Start Last Admin Trade Name Freq PRN Reason Stop Dose Admin Acetaminophen 1,000 mg 06/18/19 01:07 06/18/19 02:38 Ofirmev Injection - IVPB 06/19/19 01:07 1,000 mg Q6H PRN Administration FEVER Sodium Chloride 1,000 mls @ 120 mls/hr 06/17/19 23:15 06/18/19 00:10 Normal Saline - IV 120 mls/hr ASDIR LIZ Administration Piperacillin Sod/Tazobactam 50 mls @ 100 mls/hr 06/19/19 03:00 Sod 3.375 gm/ Dextrose IVPB Q6H-IV LIZ Protocol Piperacillin Sod/Tazobactam 50 mls @ 100 mls/hr 06/18/19 06:00 06/18/19 10:45 Sod 3.375 gm/ Dextrose IVPB 06/18/19 15:29 100 mls/hr Q6H-IV LIZ Administration Protocol Insulin Aspart 1 vial 06/18/19 07:00 06/18/19 11:19 Novolog Vial Sliding Scale - SQ Not Given ACHS LIZ Protocol Morphine Sulfate 4 mg 06/18/19 01:42 Morphine Sulfate IVPUSH Q4H PRN PAIN LEVEL 7 - 10 ASSESSMENT/PLAN: 59 y/o male with PMH of DM presents to the ED with complaints of RLQ pain for the past 2 days that started suddenly found to have a ruptured appendix with phlegmonous changes seen on CT scan c/w IV abx plan for IR drainage f/u surgical recs and IR recs IV fluid resucuitation pain meds; morphine 2q4 at this time patient is adequately fluid resuscitated and is normotensive- not requiring ICU monitoring at this time Dispo:please re-consult if necessary Problem List - Problems (1) Acute appendicitis with appendiceal abscess Code(s): K35.33 - ACUTE APPENDICITIS WITH PERF AND LOC PERITONITIS, WITH ABSCS Visit type - Emergency Visit Emergency Visit: Yes ED Registration Date: 06/17/19 Care time: The patient presented to the Emergency Department on the above date and was hospitalized for further evaluation of their emergent condition. - New Patient This patient is new to me today: Yes Date on this admission: 06/18/19 - Critical Care Critical Care patient: No ATTENDING PHYSICIAN STATEMENT I saw and evaluated the patient. I reviewed the resident's note and discussed the case with the resident. I agree with the resident's findings and plan as documented. SUBJECTIVE: OBJECTIVE: ASSESSMENT AND PLAN:
[2019-06-18] MEDS ORDERED: PIPERACILLIN/TAZOBACTAM 3.375 GM VIAL IVPB ONE (14:57)
[2019-06-18] MEDS ORDERED: DEXTROSE 5%-WATER - 50 ML IVPB ONE (14:57)
[2019-06-18] MEDS: morphine SULFATE 4 MG/ML VIAL IVPUSH PRN ×2 (15:01→20:34)
--- NOTE | 2019-06-18 15:02 | PN ---
Teaching Attending Note Name of Resident: Aisha Mcginnis ATTENDING PHYSICIAN STATEMENT I saw and evaluated the patient. I reviewed the resident's note and discussed the case with the resident. I agree with the resident's findings and plan as documented. SUBJECTIVE: Patient seen and examined in the ER. Awake and alert. (+) Abdominal pain 8/10, better with MS. No CP or SOB. Hemodynamics improved with IVF resuscitation. Intake & Output 06/15/19 06/16/19 06/17/19 06/18/19 23:59 23:59 23:59 23:59 Weight 175 lb Last Vital Signs Temp Pulse Resp BP Pulse Ox 99.7 F H 111 H 18 112/71 97 06/18/19 13:31 06/18/19 13:31 06/18/19 13:31 06/18/19 13:31 06/18/19 13:31 Active Medications Acetaminophen (Ofirmev Injection -) 1,000 mg IVPB Q6H PRN PRN Reason: FEVER Stop: 06/19/19 01:07 Last Admin: 06/18/19 02:38 Dose: 1,000 mg Sodium Chloride (Normal Saline -) 1,000 mls @ 120 mls/hr IV ASDIR LIZ Last Admin: 06/18/19 00:10 Dose: 120 mls/hr Piperacillin Sod/Tazobactam (Sod 3.375 gm/ Dextrose) 50 mls @ 100 mls/hr IVPB Q6H-IV LIZ; Protocol Piperacillin Sod/Tazobactam (Sod 3.375 gm/ Dextrose) 50 mls @ 100 mls/hr IVPB Q6H-IV LIZ; Protocol Stop: 06/18/19 15:29 Last Admin: 06/18/19 10:45 Dose: 100 mls/hr Insulin Aspart (Novolog Vial Sliding Scale -) 1 vial SQ ACHS LIZ; Protocol Last Admin: 06/18/19 11:19 Dose: Not Given Morphine Sulfate (Morphine Sulfate) 4 mg IVPUSH Q4H PRN PRN Reason: PAIN LEVEL 7 - 10 GENERAL: Awake, alert, Mildly uncomfortable due to pain EYES: PEERLA; EOMI; no scleral icterus NECK:no JVD; no lymphadenopathy LUNGS:CTA B/L; no rales, rhonchi or wheezing HEART: Regular rate and rhythm, normal S1 and S2 without murmur, rub or gallop. ABDOMEN: Soft, + RLQ tenderness, No guarding or rigidity MUSCULOSKELETAL: Normal range of motion at all joints. No bony deformities or tenderness. No CVA tenderness. EXTREMITIES: warm; well-perfused no clubbing/cyanosis or edema NEUROLOGICAL: Non-focal SKIN: Warm, dry, normal turgor, no rashes or lesions noted. Laboratory Results - last 24 hr 06/17/19 06/17/19 06/17/19 18:30 18:30 18:30 WBC 16.5 H RBC 4.15 Hgb 13.4 Hct 40.0 MCV 96.4 H MCH 32.3 MCHC 33.5 RDW 13.1 Plt Count 352 MPV 7.7 Absolute Neuts (auto) 12.8 H Neutrophils % 77.5 Lymphocytes % 12.7 Monocytes % 9.3 Eosinophils % 0.3 Basophils % 0.2 Nucleated RBC % 0 PT with INR INR PTT (Actin FS) Sodium 134 L Potassium 4.2 Chloride 98 Carbon Dioxide 28 Anion Gap 9 BUN 13.7 Creatinine 1.0 Est GFR (CKD-EPI)AfAm 94.39 Est GFR (CKD-EPI)NonAf 81.44 POC Glucometer Random Glucose 177 H Hemoglobin A1c % Lactic Acid 1.5 Calcium 9.0 Magnesium 1.7 L Total Bilirubin 0.6 AST 14 L ALT 20 Alkaline Phosphatase 127 H Creatine Kinase 101 Troponin I < 0.02 Total Protein 8.1 Albumin 3.9 Urine Color Urine Appearance Urine pH Ur Specific [place] Urine Protein Urine Glucose (UA) Urine Ketones Urine Blood Urine Nitrite Urine Bilirubin Urine Urobilinogen Ur Leukocyte Esterase Influenza A (Rapid) Influenza B (Rapid) Blood Type Antibody Screen 06/17/19 06/17/19 06/17/19 18:30 20:58 23:14 WBC RBC Hgb Hct MCV MCH MCHC RDW Plt Count MPV Absolute Neuts (auto) Neutrophils % Lymphocytes % Monocytes % Eosinophils % Basophils % Nucleated RBC % PT with INR 12.80 INR 1.08 PTT (Actin FS) Sodium Potassium Chloride Carbon Dioxide Anion Gap BUN Creatinine Est GFR (CKD-EPI)AfAm Est GFR (CKD-EPI)NonAf POC Glucometer Random Glucose Hemoglobin A1c % Lactic Acid Calcium Magnesium Total Bilirubin AST ALT Alkaline Phosphatase Creatine Kinase Troponin I Total Protein Albumin Urine Color Yellow Urine Appearance Clear Urine pH 7.0 Ur Specific [place] 1.064 H Urine Protein Negative Urine Glucose (UA) 2+ H Urine Ketones Trace H Urine Blood Negative Urine Nitrite Negative Urine Bilirubin Negative Urine Urobilinogen 1.0 Ur Leukocyte Esterase Negative Influenza A (Rapid) Negative Influenza B (Rapid) Negative Blood Type Antibody Screen 06/18/19 06/18/19 06/18/19 06:20 06:20 06:20 WBC RBC Hgb Hct MCV MCH MCHC RDW Plt Count MPV Absolute Neuts (auto) Neutrophils % Lymphocytes % Monocytes % Eosinophils % Basophils % Nucleated RBC % PT with INR 13.80 H INR 1.17 H PTT (Actin FS) 34.4 Sodium Potassium Chloride Carbon Dioxide Anion Gap BUN Creatinine Est GFR (CKD-EPI)AfAm Est GFR (CKD-EPI)NonAf POC Glucometer Random Glucose Hemoglobin A1c % 9.9 H Lactic Acid Calcium Magnesium Total Bilirubin AST ALT Alkaline Phosphatase Creatine Kinase Troponin I Total Protein Albumin Urine Color Urine Appearance Urine pH Ur Specific [place] Urine Protein Urine Glucose (UA) Urine Ketones Urine Blood Urine Nitrite Urine Bilirubin Urine Urobilinogen Ur Leukocyte Esterase Influenza A (Rapid) Influenza B (Rapid) Blood Type O POSITIVE Antibody Screen Negative 06/18/19 06/18/19 06/18/19 06:45 07:53 10:08 WBC RBC Hgb Hct MCV MCH MCHC RDW Plt Count MPV Absolute Neuts (auto) Neutrophils % Lymphocytes % Monocytes % Eosinophils % Basophils % Nucleated RBC % PT with INR INR PTT (Actin FS) Sodium Potassium Chloride Carbon Dioxide Anion Gap BUN Creatinine Est GFR (CKD-EPI)AfAm Est GFR (CKD-EPI)NonAf POC Glucometer 203 Random Glucose Hemoglobin A1c % Lactic Acid 0.9 Calcium Magnesium Total Bilirubin AST ALT Alkaline Phosphatase Creatine Kinase Troponin I < 0.02 Total Protein Albumin Urine Color Urine Appearance Urine pH Ur Specific [place] Urine Protein Urine Glucose (UA) Urine Ketones Urine Blood Urine Nitrite Urine Bilirubin Urine Urobilinogen Ur Leukocyte Esterase Influenza A (Rapid) Influenza B (Rapid) Blood Type Antibody Screen 06/18/19 11:17 WBC RBC Hgb Hct MCV MCH MCHC RDW Plt Count MPV Absolute Neuts (auto) Neutrophils % Lymphocytes % Monocytes % Eosinophils % Basophils % Nucleated RBC % PT with INR INR PTT (Actin FS) Sodium Potassium Chloride Carbon Dioxide Anion Gap BUN Creatinine Est GFR (CKD-EPI)AfAm Est GFR (CKD-EPI)NonAf POC Glucometer 212 Random Glucose Hemoglobin A1c % Lactic Acid Calcium Magnesium Total Bilirubin AST ALT Alkaline Phosphatase Creatine Kinase Troponin I Total Protein Albumin Urine Color Urine Appearance Urine pH Ur Specific [place] Urine Protein Urine Glucose (UA) Urine Ketones Urine Blood Urine Nitrite Urine Bilirubin Urine Urobilinogen Ur Leukocyte Esterase Influenza A (Rapid) Influenza B (Rapid) Blood Type Antibody Screen Problem List - Problems (1) Acute appendicitis with appendiceal abscess Code(s): K35.33 - ACUTE APPENDICITIS WITH PERF AND LOC PERITONITIS, WITH ABSCS ASSESSMENT/PLAN: Sepsis due to ruptured appendix with phlegmon/abscess DM ABX per ID Continue IVF resuscitation IR for drainage Pain control with MS VTE prophylaxis Supplemental O2 as needed Can be monitored on 4W / 4S Please call for any change in condition or questions Dr Mcgrath
--- NOTE | 2019-06-18 17:53 | PN ---
Physical Exam: SUBJECTIVE: Patient seen and examined. He says he is feeling much better. OBJECTIVE: Vital Signs Period Temp Pulse Resp BP Sys/Stevens Pulse Ox Last 24 Hr 98 F-101.4 F 73-128 14-27 90-179/56-79 96-99 GENERAL: The patient is awake, alert, and fully oriented, in no acute distress. LUNGS: Breath sounds equal, clear to auscultation bilaterally, no wheezes, no crackles, no accessory muscle use. HEART: Regular rhythm, tachycardic, S1, S2, (+) 2/6 SM. ABDOMEN: Soft, (+) RLQ tenderness, nondistended, normoactive bowel sounds, no guarding, no rebound, no hepatosplenomegaly, no masses. EXTREMITIES: 2+ pulses, warm, well-perfused, no edema. Laboratory Results - last 24 hr 06/17/19 06/17/19 06/17/19 18:30 18:30 18:30 WBC 16.5 H RBC 4.15 Hgb 13.4 Hct 40.0 MCV 96.4 H MCH 32.3 MCHC 33.5 RDW 13.1 Plt Count 352 MPV 7.7 Absolute Neuts (auto) 12.8 H Neutrophils % 77.5 Lymphocytes % 12.7 Monocytes % 9.3 Eosinophils % 0.3 Basophils % 0.2 Nucleated RBC % 0 PT with INR INR PTT (Actin FS) Sodium 134 L Potassium 4.2 Chloride 98 Carbon Dioxide 28 Anion Gap 9 BUN 13.7 Creatinine 1.0 Est GFR (CKD-EPI)AfAm 94.39 Est GFR (CKD-EPI)NonAf 81.44 POC Glucometer Random Glucose 177 H Hemoglobin A1c % Lactic Acid 1.5 Calcium 9.0 Magnesium 1.7 L Total Bilirubin 0.6 AST 14 L ALT 20 Alkaline Phosphatase 127 H Creatine Kinase 101 Troponin I < 0.02 Total Protein 8.1 Albumin 3.9 Urine Color Urine Appearance Urine pH Ur Specific Dimock Urine Protein Urine Glucose (UA) Urine Ketones Urine Blood Urine Nitrite Urine Bilirubin Urine Urobilinogen Ur Leukocyte Esterase Influenza A (Rapid) Influenza B (Rapid) Blood Type Antibody Screen 06/17/19 06/17/19 06/17/19 18:30 20:58 23:14 WBC RBC Hgb Hct MCV MCH MCHC RDW Plt Count MPV Absolute Neuts (auto) Neutrophils % Lymphocytes % Monocytes % Eosinophils % Basophils % Nucleated RBC % PT with INR 12.80 INR 1.08 PTT (Actin FS) Sodium Potassium Chloride Carbon Dioxide Anion Gap BUN Creatinine Est GFR (CKD-EPI)AfAm Est GFR (CKD-EPI)NonAf POC Glucometer Random Glucose Hemoglobin A1c % Lactic Acid Calcium Magnesium Total Bilirubin AST ALT Alkaline Phosphatase Creatine Kinase Troponin I Total Protein Albumin Urine Color Yellow Urine Appearance Clear Urine pH 7.0 Ur Specific Dimock 1.064 H Urine Protein Negative Urine Glucose (UA) 2+ H Urine Ketones Trace H Urine Blood Negative Urine Nitrite Negative Urine Bilirubin Negative Urine Urobilinogen 1.0 Ur Leukocyte Esterase Negative Influenza A (Rapid) Negative Influenza B (Rapid) Negative Blood Type Antibody Screen 06/18/19 06/18/19 06/18/19 06:20 06:20 06:20 WBC RBC Hgb Hct MCV MCH MCHC RDW Plt Count MPV Absolute Neuts (auto) Neutrophils % Lymphocytes % Monocytes % Eosinophils % Basophils % Nucleated RBC % PT with INR 13.80 H INR 1.17 H PTT (Actin FS) 34.4 Sodium Potassium Chloride Carbon Dioxide Anion Gap BUN Creatinine Est GFR (CKD-EPI)AfAm Est GFR (CKD-EPI)NonAf POC Glucometer Random Glucose Hemoglobin A1c % 9.9 H Lactic Acid Calcium Magnesium Total Bilirubin AST ALT Alkaline Phosphatase Creatine Kinase Troponin I Total Protein Albumin Urine Color Urine Appearance Urine pH Ur Specific Dimock Urine Protein Urine Glucose (UA) Urine Ketones Urine Blood Urine Nitrite Urine Bilirubin Urine Urobilinogen Ur Leukocyte Esterase Influenza A (Rapid) Influenza B (Rapid) Blood Type O POSITIVE Antibody Screen Negative 06/18/19 06/18/19 06/18/19 06:45 07:53 10:08 WBC RBC Hgb Hct MCV MCH MCHC RDW Plt Count MPV Absolute Neuts (auto) Neutrophils % Lymphocytes % Monocytes % Eosinophils % Basophils % Nucleated RBC % PT with INR INR PTT (Actin FS) Sodium Potassium Chloride Carbon Dioxide Anion Gap BUN Creatinine Est GFR (CKD-EPI)AfAm Est GFR (CKD-EPI)NonAf POC Glucometer 203 Random Glucose Hemoglobin A1c % Lactic Acid 0.9 Calcium Magnesium Total Bilirubin AST ALT Alkaline Phosphatase Creatine Kinase Troponin I < 0.02 Total Protein Albumin Urine Color Urine Appearance Urine pH Ur Specific Dimock Urine Protein Urine Glucose (UA) Urine Ketones Urine Blood Urine Nitrite Urine Bilirubin Urine Urobilinogen Ur Leukocyte Esterase Influenza A (Rapid) Influenza B (Rapid) Blood Type Antibody Screen 06/18/19 11:17 WBC RBC Hgb Hct MCV MCH MCHC RDW Plt Count MPV Absolute Neuts (auto) Neutrophils % Lymphocytes % Monocytes % Eosinophils % Basophils % Nucleated RBC % PT with INR INR PTT (Actin FS) Sodium Potassium Chloride Carbon Dioxide Anion Gap BUN Creatinine Est GFR (CKD-EPI)AfAm Est GFR (CKD-EPI)NonAf POC Glucometer 212 Random Glucose Hemoglobin A1c % Lactic Acid Calcium Magnesium Total Bilirubin AST ALT Alkaline Phosphatase Creatine Kinase Troponin I Total Protein Albumin Urine Color Urine Appearance Urine pH Ur Specific Dimock Urine Protein Urine Glucose (UA) Urine Ketones Urine Blood Urine Nitrite Urine Bilirubin Urine Urobilinogen Ur Leukocyte Esterase Influenza A (Rapid) Influenza B (Rapid) Blood Type Antibody Screen Active Medications Generic Name Dose Route Start Last Admin Trade Name Freq PRN Reason Stop Dose Admin Acetaminophen 1,000 mg 06/18/19 01:07 06/18/19 02:38 Ofirmev Injection - IVPB 06/19/19 01:07 1,000 mg Q6H PRN Administration FEVER Sodium Chloride 1,000 mls @ 120 mls/hr 06/17/19 23:15 06/18/19 00:10 Normal Saline - IV 120 mls/hr ASDIR LIZ Administration Piperacillin Sod/Tazobactam 50 mls @ 100 mls/hr 06/19/19 03:00 Sod 3.375 gm/ Dextrose IVPB Q6H-IV LIZ Protocol Insulin Aspart 1 vial 06/18/19 07:00 06/18/19 11:19 Novolog Vial Sliding Scale - SQ Not Given ACHS LIZ Protocol Morphine Sulfate 4 mg 06/18/19 01:42 06/18/19 15:01 Morphine Sulfate IVPUSH 4 mg Q4H PRN Administration PAIN LEVEL 7 - 10 ASSESSMENT/PLAN: This is a 59 year old man with a history of type 2 DM who presented to the ED with RLQ abdominal pain and left sided chest pain. 1. Sepsis (fever, leukocytosis, tachycardia) secondary to perforated appendicitis with abscess - Continue NPO, IV fluid, Zosyn - Pain control - Follow-up blood cultures - Plan for interval appendectomy 2. Chest pain - Troponin negative x2 - No ischemic changes on EKG 3. Systolic murmur - Echo ordered 4. Type 2 DM, uncontrolled - HbA1c 9.9 - Continue Novolog sliding scale Visit type - Emergency Visit Emergency Visit: Yes ED Registration Date: 06/17/19 Care time: The patient presented to the Emergency Department on the above date and was hospitalized for further evaluation of their emergent condition. - New Patient This patient is new to me today: Yes Date on this admission: 06/18/19 - Critical Care Critical Care patient: No - Discharge Referral Referred to [facility] No
[2019-06-18 18:21] VITALS: BMI 25.8
[2019-06-18] MEDS ORDERED: PT OWN MED DRAWER 7, Y5N ONE (19:04)
--- NOTE | 2019-06-18 20:44 | PN ---
Progress Note (short form) - Note Progress Note: ID CONSULT DICTATED S/P PERFORATED APPENDICITIS R/O SEPSIS SECONDARY TO GI SOURCE AWAIT C/S SURGICAL/ IR FOLLOW UP EMPIRIC ZOSYN
[2019-06-18] MEDS ORDERED: MELATONIN 5 MG TABLETS PO ONE (23:54)
[2019-06-19] MEDS ORDERED: DEXTROSE 5%-WATER - 50 ML IVPB ONE ×3 (02:01→17:55)
[2019-06-19] MEDS ORDERED: PIPERACILLIN/TAZOBACTAM 3.375 GM VIAL IVPB ONE ×3 (02:01→17:55)
[2019-06-19] MEDS: PIPERACILLIN/TAZOB 3.375 GM 3.375 GM in DEXTROSE 5%-WATER - 50 ML IVPB SCH ×3 (02:15→17:56)
[2019-06-19] MEDS ORDERED: PIPERACILLIN/TAZOB 3.375 GM 3.375 GM in DEXTROSE 5%-WATER - 50 ML IVPB SCH (03:00)
[2019-06-19] MEDS: morphine SULFATE 4 MG/ML VIAL IVPUSH PRN ×3 (04:56→19:52)
[2019-06-19] MEDS: INSULIN SLIDING SCALE (NOVOLOG) 1 VIAL SQ SCH ×4 (06:02→21:46)
[2019-06-19 06:58] LABS: BASO % 0.8 % (0-2.0); HEMATOCRIT 30.9 % (35.4-49); HEMOGLOBIN 10.3 GM/dL (11.7-16.9); LYMPH % 15.4 % (8-40); MCH 32.4 pg (25.7-33.7); MCHC 33.3 g/dl (32.0-35.9); MEAN CELL VOLUME 97.5 fl (80-96); MEAN PLT VOLUME 7.6 fl (7.5-11.1); MONO % 8.2 % (3.8-10.2); NEUT % 74.6 % (42.8-82.8); PLATELET COUNT 272 K/MM3 (134-434); RBC 3.17 M/mm3 (4.00-5.60); RDW 12.5 % (11.9-15.9); WHITE BLOOD COUNT 12.5 K/mm3 (4.0-10.0)
--- NOTE | 2019-06-19 07:42 | PN ---
Physical Exam: SUBJECTIVE: Patient seen and examined at bed side denies nay fever , chills, N/V still with RLQ pain strated on clear liquid diet tolerated well OBJECTIVE: Vital Signs Period Temp Pulse Resp BP Sys/Stevens Pulse Ox Last 24 Hr 98.2 F-99.8 F 104-113 18-27 105-127/62-79 97-100 GENERAL: AAOx3 in NAD HEAD: NC/AT EYES: EOMI, Conjunctiva clear, sclera anicteric ENT: moist mucous membrane NECK: Supple, no JVD LUNGS: CTA B/L, no crackles no wheezing no accessory muscle use. HEART: RRR, , normal s1, s2,2/6 systolic murmur LUSB and LLSB ABDOMEN: Soft, ND, RLQ Tenderness, +BS 4 Q, no CVA Tenderness LOWER EXTREMITIES: no edema, +2DP pulse, NEUROLOGICAL: No focal deficit. Normal speech. gait not observed. PSYCHIATRIC: Cooperative. Good eye contact. Appropriate mood and affect. SKIN: Warm, dry, Laboratory Results - last 24 hr 06/18/19 06/18/19 06/18/19 06:20 06:20 06:20 WBC RBC Hgb Hct MCV MCH MCHC RDW Plt Count MPV Absolute Neuts (auto) Neutrophils % Lymphocytes % Monocytes % Eosinophils % Basophils % Nucleated RBC % PT with INR 13.80 H INR 1.17 H PTT (Actin FS) 34.4 POC Glucometer Hemoglobin A1c % 9.9 H Lactic Acid Troponin I Blood Type O POSITIVE Antibody Screen Negative 06/18/19 06/18/19 06/18/19 06:45 07:53 10:08 WBC RBC Hgb Hct MCV MCH MCHC RDW Plt Count MPV Absolute Neuts (auto) Neutrophils % Lymphocytes % Monocytes % Eosinophils % Basophils % Nucleated RBC % PT with INR INR PTT (Actin FS) POC Glucometer 203 Hemoglobin A1c % Lactic Acid 0.9 Troponin I < 0.02 Blood Type Antibody Screen 06/18/19 06/18/19 06/18/19 11:17 17:58 20:32 WBC RBC Hgb Hct MCV MCH MCHC RDW Plt Count MPV Absolute Neuts (auto) Neutrophils % Lymphocytes % Monocytes % Eosinophils % Basophils % Nucleated RBC % PT with INR INR PTT (Actin FS) POC Glucometer 212 162 120 Hemoglobin A1c % Lactic Acid Troponin I Blood Type Antibody Screen 06/19/19 06/19/19 05:10 05:55 WBC 12.5 H RBC 3.17 L Hgb 10.3 L Hct 30.9 L D MCV 97.5 H MCH 32.4 MCHC 33.3 RDW 12.5 Plt Count 272 D MPV 7.6 Absolute Neuts (auto) 9.3 H Neutrophils % 74.6 Lymphocytes % 15.4 D Monocytes % 8.2 Eosinophils % 1.0 D Basophils % 0.8 D Nucleated RBC % 0 PT with INR INR PTT (Actin FS) POC Glucometer 100 Hemoglobin A1c % Lactic Acid Troponin I Blood Type Antibody Screen Active Medications Generic Name Dose Route Start Last Admin Trade Name Freq PRN Reason Stop Dose Admin Sodium Chloride 1,000 mls @ 120 mls/hr 06/17/19 23:15 06/18/19 23:15 Normal Saline - IV Not Given ASDIR LIZ Piperacillin Sod/Tazobactam 50 mls @ 100 mls/hr 06/19/19 02:00 06/19/19 02:15 Sod 3.375 gm/ Dextrose IVPB 100 mls/hr Q8H-IV LIZ Administration Protocol Insulin Aspart 1 vial 06/18/19 07:00 06/19/19 06:02 Novolog Vial Sliding Scale - SQ Not Given ACHS LIZ Protocol Morphine Sulfate 4 mg 06/18/19 01:42 06/19/19 04:56 Morphine Sulfate IVPUSH 4 mg Q4H PRN Administration PAIN LEVEL 7 - 10 CBC, BMP 06/19/19 05:55 06/19/19 05:55 ASSESSMENT/PLAN: 59 year old male with PMH of DM. He presented to the ER with complaints of RLQ abdominal pain for the past 2 days and intermittent left sided chest pain that he has had for the past several months, more frequent for the past 5 days. Found to have perforated appendicitis on CT AP. #sepsis 2/2 Perforated appendicitis, improving * CT AP: Ruptured appendicitis, phlegmon formation, no free air, Appendicial perforation with phlegmon and with no signs of free perforation, peritonitis, or abscess may initially be managed conservatively * cont zosyn, ID on board * Surgery and IR on board * IR no need for intervention as there is no collection * surgery to decide after abx when to operate Dr. Ayala * IV fluids * Pain control with morphine * follow cx * type and screen , PT, PTT for possible surgery * start clear liquid diet as of now #Chest pain * Trop negative x 2 * , EKG shows sinus tachy with no ST, T wave abnormalities * Tele monitoring * Cardio consult placed # DM * BGM, ISS ACHS * HbA1c 9.9 #FEN * IV N/S @ 120, given 1L bolus * monitor lytes and replenished as needed * clear liquid diet #DVT proph * SCDs, Holding chemical AC for possible surgery in AM Visit type - Emergency Visit Emergency Visit: Yes ED Registration Date: 06/17/19 Care time: The patient presented to the Emergency Department on the above date and was hospitalized for further evaluation of their emergent condition. - New Patient This patient is new to me today: Yes Date on this admission: 06/19/19 - Critical Care Critical Care patient: No - Discharge Referral Referred to [facility] No ATTENDING PHYSICIAN STATEMENT I saw and evaluated the patient. I reviewed the resident's note and discussed the case with the resident. I agree with the resident's findings and plan as documented. SUBJECTIVE: OBJECTIVE: ASSESSMENT AND PLAN:
[2019-06-19 07:55] LABS: ALBUMIN 2.6 g/dl (3.4-5.0); ALK PHOS 95 U/L (45-117); ANION GAP 8 MMOL/L (8-16); CHLORIDE 104 mmol/L (98-107); CO2 23 mmol/L (21-32); CREATININE 0.8 mg/dL (0.55-1.3); GLUCOSE,RANDOM 89 mg/dL (74-106); MAGNESIUM 1.8 mg/dL (1.8-2.4); PHOSPHOROUS 2.8 mg/dL (2.5-4.9); POTASSIUM 3.6 mmol/L (3.5-5.1); SGOT/AST 16 U/L (15-37); SGPT/ALT 16 U/L (13-61); SODIUM 136 mmol/L (136-145); TOT PROT 6.2 g/dl (6.4-8.2)
--- NOTE | 2019-06-19 08:29 | PN ---
Progress Note (short form) - Note Progress Note: General Surgery: Pt states that he is comfortable this am, received pain medication. Passing flatus Vital Signs Period Temp Pulse Resp BP Sys/Stevens Pulse Ox Last 24 Hr 98.2 F-99.8 F 104-113 18-27 105-127/62-79 97-100 GEN: A&0x3 ABD: soft, non-distended, RLQ tenderness. No rebound A/P: 59 yo male with perforated appendicitis Reviewed CT scan with IR, unable to define collection at this time. Will need repeat CT scan to see if collection better defined and if there is now a colleciton to drain D/w Dr. Hanson, will continue conservative management NPO/IV hydration/IV abx
--- NOTE | 2019-06-19 09:32 | PN ---
Progress Note (short form) - Note Progress Note: 59 yr old male with perforated appendicittis with associated collection Feeling better WBC decreasing Responding well to antibiotics but needs collection drained Please reconsult IR and if desired please repeat Ct scan Problem List - Problems (1) Acute appendicitis with appendiceal abscess Code(s): K35.33 - ACUTE APPENDICITIS WITH PERF AND LOC PERITONITIS, WITH ABSCS
--- NOTE | 2019-06-19 09:53 | ECHO ---
Version: 1 Name: CHERRY COSTA Exam: Adult Echocardiogram Study Date: 06/19/2019, 9:14 AM Age: 59 Years MMode/2D Measurements & Calculations IVSd: 1.25 cm LVIDs: 2.5 cm LVIDd: 3.5 cm LVPWd: 1.42 cm LVOT diam: 2.32 cm Ao root diam: 3.7 cm LA dimension: 2.8 cm Doppler Measurements & Calculations MV E max darwin: 97.0 cm/sec Med E/e': 13.3 MV A max darwin: 127.1 cm/sec Med Peak E' Darwin: 7.3 cm/sec MV E/A: 0.76 Lat E/e': 15.1 Lat Peak E' Darwin: 6.4 cm/sec Ao max P.2 mmHg Ao mean P.1 mmHg Ao V2 max: 230.0 cm/sec TR max darwin: 190.0 cm/sec TR max P.4 mmHg Left Ventricle The left ventricle is normal in size. There is mild concentric left ventricular hypertrophy. Left ve ntricular systolic function is normal. Ejection Fraction = 70%. The transmitral spectral Doppler flow pattern is suggestive of impaired LV relaxation. Right Ventricle The right ventricle is normal in size and function. Atria Normal left and right atrial size and function. Mitral Valve The mitral valve is normal. There is trace mitral regurgitation. Tricuspid Valve The tricuspid valve is normal. There is trace tricuspid regurgitation. Aortic Valve There is mild aortic valve thickening. Pulmonic Valve The pulmonic valve is not well seen, but is grossly normal. Great Vessels The aortic root is normal size. Normal aortic arch, descending and ascending aorta. Pericardium/Pleura There is no pericardial effusion. Summary Statements The left ventricle is normal in size. There is mild concentric left ventricular hypertrophy. Left ventricular systolic function is normal. Ejection Fraction = 70%. The transmitral spectral Doppler flow pattern is suggestive of impaired LV relaxation. The right ventricle is normal in size and function. Normal left and right atrial size and function. The mitral valve is normal. There is trace mitral regurgitation. The tricuspid valve is normal. There is trace tricuspid regurgitation. There is mild aortic valve thickening. The pulmonic valve is not well seen, but is grossly normal. The aortic root is normal size. Normal aortic arch, descending and ascending aorta There is no pericardial effusion. Tomer Morris 06/19/2019, 9:53 AM Ordering Physician: Luis Giron Referring Physician: LUIS GIRON Performed By: Mindi Bowman
--- NOTE | 2019-06-19 10:39 | CONS ---
INFECTIOUS DISEASE CONSULTATION DATE OF CONSULTATION: DATE OF DICTATION: 06/19/2019 HISTORY: The patient is a 59-year-old male who is evaluated for ruptured appendicitis. He presented to the hospital on June 17, 2019, with a 2-day history of worsening right lower quadrant abdominal pain. CAT scan showed evidence of a ruptured appendicitis with phlegmon. There was no discrete collection or abscess formation noted. His course was complicated by elevated white blood cell count 16,000. Cultures were obtained. He was empirically treated with Zosyn. At the present time, he is awake. He complains of some right lower quadrant abdominal pain. He has had nausea but denies any vomiting. He had a bowel movement prior to his hospital admission. PAST MEDICAL HISTORY: Positive for hypertension and diabetes mellitus. ALLERGIES: No known allergies. MEDICATIONS: At the present time include Zosyn, morphine, vancomycin. SOCIAL HISTORY: He resides at home with his significant other. He is a nonsmoker. Occasional ETOH. LABORATORY DATA: White count 16.5, 77 neutrophils, 12 lymphocytes, 9 monocytes, hematocrit 40.0, platelet count 352, creatinine 1.0. Urinalysis negative. Influenza swab negative. Blood cultures are pending. CAT scan of the abdomen and pelvis was reviewed with the radiologist. It shows findings consistent with a ruptured appendicitis with phlegmonous changes. There appears to be an intramural phlegmon with no discrete collection or abscess formation. There were no signs of free air or free fluid in the deep pelvis. PHYSICAL EXAMINATION: General: He is awake. He is in no acute distress. Vital Signs: Temperature 98, blood pressure 108/70, pulse 113 regular, respirations 24 per minute. HEENT: Sclerae anicteric. Heart: Sounds S1, S2. Lungs: Clear. Abdomen: Positive bowel sounds. There is right lower quadrant tenderness to palpation with some rebound tenderness. No rigidity. Extremities: Negative for edema. IMPRESSION: 1. Status post ruptured appendicitis with phlegmon. 2. Rule out sepsis secondary to gastrointestinal source. 3. Leukocytosis. 4. Fever. PLAN: Await culture results. Continue empiric antibiotic coverage. GI pathogens with Zosyn. Surgical and Interventional Radiology follow up. CAT scans reviewed with interventional radiologist. No discrete collection or abscess drainable at this time. Case was discussed with patient and patient's significant other present at the time of the examination. Thank you for the kind referral. ROSE MARIE SAHU M.D. [id number]
--- NOTE | 2019-06-19 12:37 | PN ---
Progress Note (short form) - Note Progress Note: s: no chest pain, palps, dizziness, dyspnea Current Medications Sodium Chloride (Normal Saline -) 1,000 mls @ 120 mls/hr IV ASDIR LIZ Last Admin: 06/18/19 23:15 Dose: Not Given Piperacillin Sod/Tazobactam (Sod 3.375 gm/ Dextrose) 50 mls @ 100 mls/hr IVPB Q8H-IV LIZ; Protocol Last Admin: 06/19/19 10:00 Dose: 100 mls/hr Insulin Aspart (Novolog Vial Sliding Scale -) 1 vial SQ ACHS LIZ; Protocol Last Admin: 06/19/19 11:44 Dose: Not Given Morphine Sulfate (Morphine Sulfate) 4 mg IVPUSH Q4H PRN PRN Reason: PAIN LEVEL 7 - 10 Last Admin: 06/19/19 10:15 Dose: 4 mg Vital Signs Period Temp Pulse Resp BP Sys/Stevens Pulse Ox Last 24 Hr 98.2 F-99.8 F 104-111 18-20 105-133/62-84 97-100 Constitutional: Yes: Well Nourished, No Distress Eyes: No: Sclera Icterus HENT: No: Nasal Congestion Neck: No: Decreased ROM Respiratory: Yes: CTA Bilaterally. No: Accessory Muscle Use, Rales, Wheezes Gastrointestinal: Yes: Normal Bowel Sounds. No: Distention, Hepatomegaly, Palpable Mass, Tenderness Cardiovascular: Yes: Regular Rate and Rhythm JVD: No Carotid Bruit: No PMI: Non-Displaced Heart Sounds: Yes: S1, S2. No: Gallop Murmur: Yes: Systolic Murmur (brief CARISSA at apex (2/6) > RUSB). No: Diastolic Murmur Musculoskeletal: Yes: Other (No kyphosis) Extremities: No: Cool, Cyanosis Edema: No Peripheral Pulses: 2+ Left Carotid, 2+ Right Carotid, 2+ Left Doralis Pedis, 2+ Right Dorsalis Pedis Integumentary: No: Jaundice Neurological: Yes: Alert, Oriented (x3) Psychiatric: No: Agitated Assessment/Plan ECG #1: sinus tach, LAFB, no path q's, no ST-T #2: no change CXR: clear lungs/pleura echo 06/2019 nl LV function, mild conc LVH, nl RV, tr MR, tr TR tele: sinus, sinus tachycardia appendicitis, ruptured/preop CV eval -per surgery, plan is IR drainage -continue IVF -remainder of plan per hospitalist -Revised CVRI = 0, normal functional capacity. no s/sx of active ischemia/chf. as long as 2nd trop negative, pt is at acceptable CV risk for invasive procedures/anesthesia chest pain: -acute on chronic sx's -trop neg x 3 -ecg nonischemic -longstanding sx, c/w gas/bloating--relieved by passing gas. no new features. -defer stress testing. murmur: -soft murmur, unusual features/locatoin. -echo unremarkable -outpt f/u rec'd with us--he agrees
--- NOTE | 2019-06-19 13:00 | PN ---
Teaching Attending Note Name of Resident: Wilber Jordan ATTENDING PHYSICIAN STATEMENT I saw and evaluated the patient. I reviewed the resident's note and discussed the case with the resident. I agree with the resident's findings and plan as documented. SUBJECTIVE: Patient is feeling much better. He still has some RLQ pain. OBJECTIVE: Vital Signs Period Temp Pulse Resp BP Sys/Stevens Pulse Ox Last 24 Hr 98.2 F-99.8 F 104-111 18-20 105-133/62-84 97-100 GENERAL: The patient is awake, alert, and fully oriented, in no acute distress. LUNGS: Breath sounds equal, clear to auscultation bilaterally, no wheezes, no crackles, no accessory muscle use. HEART: Regular rhythm, tachycardic, S1, S2, (+) 2/6 SM. ABDOMEN: Soft, (+) RLQ tenderness, nondistended, normoactive bowel sounds, no guarding, no rebound, no hepatosplenomegaly, no masses. EXTREMITIES: 2+ pulses, warm, well-perfused, no edema. Laboratory Results - last 24 hr 06/18/19 06/18/19 06/19/19 17:58 20:32 05:10 WBC RBC Hgb Hct MCV MCH MCHC RDW Plt Count MPV Absolute Neuts (auto) Neutrophils % Lymphocytes % Monocytes % Eosinophils % Basophils % Nucleated RBC % Sodium Potassium Chloride Carbon Dioxide Anion Gap BUN Creatinine Est GFR (CKD-EPI)AfAm Est GFR (CKD-EPI)NonAf POC Glucometer 162 120 100 Random Glucose Calcium Phosphorus Magnesium Total Bilirubin AST ALT Alkaline Phosphatase Creatine Kinase Troponin I Total Protein Albumin 06/19/19 06/19/19 06/19/19 05:55 05:55 11:43 WBC 12.5 H RBC 3.17 L Hgb 10.3 L Hct 30.9 L D MCV 97.5 H MCH 32.4 MCHC 33.3 RDW 12.5 Plt Count 272 D MPV 7.6 Absolute Neuts (auto) 9.3 H Neutrophils % 74.6 Lymphocytes % 15.4 D Monocytes % 8.2 Eosinophils % 1.0 D Basophils % 0.8 D Nucleated RBC % 0 Sodium 136 Potassium 3.6 Chloride 104 Carbon Dioxide 23 Anion Gap 8 BUN 9.0 Creatinine 0.8 Est GFR (CKD-EPI)AfAm 112.53 Est GFR (CKD-EPI)NonAf 97.10 POC Glucometer 93 Random Glucose 89 Calcium 8.0 L Phosphorus 2.8 Magnesium 1.8 Total Bilirubin 1.0 AST 16 ALT 16 Alkaline Phosphatase 95 Creatine Kinase 104 Troponin I < 0.02 Total Protein 6.2 L Albumin 2.6 L Current Medications Generic Name Dose Route Start Last Admin Trade Name Freq PRN Reason Stop Dose Admin Sodium Chloride 1,000 mls @ 120 mls/hr 06/17/19 23:15 06/18/19 23:15 Normal Saline - IV Not Given ASDIR LIZ Piperacillin Sod/Tazobactam 50 mls @ 100 mls/hr 06/19/19 02:00 06/19/19 10:00 Sod 3.375 gm/ Dextrose IVPB 100 mls/hr Q8H-IV LIZ Administration Protocol Insulin Aspart 1 vial 06/18/19 07:00 06/19/19 11:44 Novolog Vial Sliding Scale - SQ Not Given ACHS LIZ Protocol Morphine Sulfate 4 mg 06/18/19 01:42 06/19/19 10:15 Morphine Sulfate IVPUSH 4 mg Q4H PRN Administration PAIN LEVEL 7 - 10 ASSESSMENT AND PLAN: This is a 59 year old man with a history of type 2 DM who presented to the ED with RLQ abdominal pain and left sided chest pain. 1. Sepsis (fever, leukocytosis, tachycardia) secondary to perforated appendicitis with abscess - Continue IV fluid, Zosyn - Pain control - Start clear liquids - Blood cultures negative so far - Plan for interval appendectomy 2. Chest pain - Troponin negative x3 - No ischemic changes on EKG 3. Systolic murmur - Echo shows mild concentric LVH, LVEF 70%, impaired LV relaxation, normal RV , normal LA, normal RA, trace MR, trace TR 4. Type 2 DM, uncontrolled - HbA1c 9.9 - Continue Novolog sliding scale
[2019-06-19] MEDS: SODIUM CHLORIDE 1,000 ML IV SCH (13:51)
[2019-06-19] MEDS: MELATONIN 5 MG TABLETS PO PRN (22:36)
[2019-06-20] MEDS: SODIUM CHLORIDE 1,000 ML IV SCH ×2 (01:00→23:30)
[2019-06-20] MEDS ORDERED: PIPERACILLIN/TAZOBACTAM 3.375 GM VIAL IVPB ONE ×3 (01:35→16:27)
[2019-06-20] MEDS ORDERED: DEXTROSE 5%-WATER - 50 ML IVPB ONE ×3 (01:35→16:27)
[2019-06-20] MEDS: PIPERACILLIN/TAZOB 3.375 GM 3.375 GM in DEXTROSE 5%-WATER - 50 ML IVPB SCH ×3 (03:48→17:38)
[2019-06-20] MEDS: morphine SULFATE 4 MG/ML VIAL IVPUSH PRN ×4 (03:50→21:21)
[2019-06-20] MEDS: INSULIN SLIDING SCALE (NOVOLOG) 1 VIAL SQ SCH ×4 (06:25→21:35)
[2019-06-20 07:18] LABS: BASO % 0.4 % (0-2.0); EOS % 2.9 % (0-4.5); HEMATOCRIT 28.8 % (35.4-49); HEMOGLOBIN 9.9 GM/dL (11.7-16.9); LYMPH % 19.9 % (8-40); MCH 32.7 pg (25.7-33.7); MCHC 34.2 g/dl (32.0-35.9); MEAN CELL VOLUME 95.4 fl (80-96); MEAN PLT VOLUME 7.3 fl (7.5-11.1); MONO % 8.4 % (3.8-10.2); NEUT % 68.4 % (42.8-82.8); PLATELET COUNT 269 K/MM3 (134-434); RBC 3.02 M/mm3 (4.00-5.60); RDW 12.4 % (11.9-15.9); WHITE BLOOD COUNT 8.5 K/mm3 (4.0-10.0)
[2019-06-20 07:41] LABS: ALBUMIN 2.6 g/dl (3.4-5.0); BILIRUBIN,TOTAL 0.8 mg/dL (0.2-1); BLOOD UREA NITROGEN 5.8 mg/dL (7-18); CREATININE 0.8 mg/dL (0.55-1.3); POTASSIUM 3.5 mmol/L (3.5-5.1); TOT PROT 6.1 g/dl (6.4-8.2)
--- NOTE | 2019-06-20 10:33 | PN ---
Progress Note (short form) - Note Progress Note: General Surgery: Pt states that he is comfortable this am, he had a BM and is passing flatus. Tolerating clears, no increase of pain with this diet. Vital Signs Period Temp Pulse Resp BP Sys/Stevens Pulse Ox Last 24 Hr 98 F-100.3 F 93-106 20-20 114-137/62-93 96-96 GEN: A&0x3 ABD: soft, non-distended, RLQ tenderness. No rebound CBC, BMP 06/20/19 06:00 06/20/19 06:00 A/P: 59 yo male with perforated appendicitis Continue on clears today IV abx D/w Dr. Hanson
--- NOTE | 2019-06-20 10:36 | PN ---
Progress Note (short form) - Note Progress Note: s: no chest pain, palps, dizziness, dyspnea Current Medications Sodium Chloride (Normal Saline -) 1,000 mls @ 120 mls/hr IV ASDIR LIZ Last Admin: 06/20/19 01:00 Dose: 120 mls/hr Piperacillin Sod/Tazobactam (Sod 3.375 gm/ Dextrose) 50 mls @ 100 mls/hr IVPB Q8H-IV LZI; Protocol Last Admin: 06/20/19 09:11 Dose: 100 mls/hr Insulin Aspart (Novolog Vial Sliding Scale -) 1 vial SQ ACHS LIZ; Protocol Last Admin: 06/20/19 06:25 Dose: Not Given Melatonin (Melatonin) 5 mg PO HS PRN PRN Reason: INSOMNIA Last Admin: 06/19/19 22:36 Dose: 5 mg Morphine Sulfate (Morphine Sulfate) 4 mg IVPUSH Q4H PRN PRN Reason: PAIN LEVEL 7 - 10 Last Admin: 06/20/19 09:09 Dose: 4 mg Vital Signs Period Temp Pulse Resp BP Sys/Stevens Pulse Ox Last 24 Hr 98 F-100.3 F 93-106 20-20 114-137/62-93 96-96 Constitutional: Yes: Well Nourished, No Distress Eyes: No: Sclera Icterus HENT: No: Nasal Congestion Neck: No: Decreased ROM Respiratory: Yes: CTA Bilaterally. No: Accessory Muscle Use, Rales, Wheezes Gastrointestinal: Yes: Normal Bowel Sounds. No: Distention, Hepatomegaly, Palpable Mass, Tenderness Cardiovascular: Yes: Regular Rate and Rhythm JVD: No Carotid Bruit: No PMI: Non-Displaced Heart Sounds: Yes: S1, S2. No: Gallop Murmur: Yes: Systolic Murmur (brief CARISSA at apex (2/6) > RUSB). No: Diastolic Murmur Musculoskeletal: Yes: Other (No kyphosis) Extremities: No: Cool, Cyanosis Edema: No Peripheral Pulses: 2+ Left Carotid, 2+ Right Carotid, 2+ Left Doralis Pedis, 2+ Right Dorsalis Pedis Integumentary: No: Jaundice Neurological: Yes: Alert, Oriented (x3) Psychiatric: No: Agitated Assessment/Plan ECG #1: sinus tach, LAFB, no path q's, no ST-T #2: no change CXR: clear lungs/pleura echo 06/2019 nl LV function, mild conc LVH, nl RV, tr MR, tr TR tele: sinus, sinus tachycardia appendicitis, ruptured/preop CV eval - manage per surgery -continue IVF -remainder of plan per hospitalist -Revised CVRI = 0, normal functional capacity. no s/sx of active ischemia/chf. as long as 2nd trop negative, pt is at acceptable CV risk for invasive procedures/anesthesia as needed per surgery chest pain: -acute on chronic sx's -trop neg x 3 -ecg nonischemic -longstanding sx, c/w gas/bloating--relieved by passing gas. no new features. -defer stress testing murmur: -soft murmur, unusual features/locatoin. -echo unremarkable -outpt f/u rec'd with us--he agrees dc tele
--- NOTE | 2019-06-20 12:55 | PN ---
Physical Exam: SUBJECTIVE: Patient seen and examined no acute events ove rnight still with slight RLQ pain denies any fever, chills, N/V/D/C repeat Ct A/P with COntrast tomorrow OBJECTIVE: Vital Signs Period Temp Pulse Resp BP Sys/Stevens Pulse Ox Last 24 Hr 98 F-100.3 F 93-106 20-20 114-137/62-93 96-96 GENERAL: AAOx3 in NAD HEAD: NC/AT EYES: EOMI, Conjunctiva clear, sclera anicteric ENT: moist mucous membrane NECK: Supple, no JVD LUNGS: CTA B/L, no crackles no wheezing no accessory muscle use. HEART: RRR, , normal s1, s2,2/6 systolic murmur LUSB and LLSB ABDOMEN: Soft, ND, RLQ Tenderness, +BS 4 Q, no CVA Tenderness LOWER EXTREMITIES: no edema, +2DP pulse, NEUROLOGICAL: No focal deficit. Normal speech. gait not observed. PSYCHIATRIC: Cooperative. Good eye contact. Appropriate mood and affect. SKIN: Warm, dry, Laboratory Results - last 24 hr 06/19/19 06/19/19 06/20/19 16:28 21:44 06:00 WBC 8.5 RBC 3.02 L Hgb 9.9 L Hct 28.8 L MCV 95.4 MCH 32.7 MCHC 34.2 RDW 12.4 Plt Count 269 MPV 7.3 L Absolute Neuts (auto) 5.8 Neutrophils % 68.4 Lymphocytes % 19.9 D Monocytes % 8.4 Eosinophils % 2.9 D Basophils % 0.4 Nucleated RBC % 0 Sodium Potassium Chloride Carbon Dioxide Anion Gap BUN Creatinine Est GFR (CKD-EPI)AfAm Est GFR (CKD-EPI)NonAf POC Glucometer 63 161 Random Glucose Calcium Total Bilirubin AST ALT Alkaline Phosphatase Total Protein Albumin 06/20/19 06/20/19 06/20/19 06:00 06:21 11:35 WBC RBC Hgb Hct MCV MCH MCHC RDW Plt Count MPV Absolute Neuts (auto) Neutrophils % Lymphocytes % Monocytes % Eosinophils % Basophils % Nucleated RBC % Sodium 136 Potassium 3.5 Chloride 104 Carbon Dioxide 23 Anion Gap 8 BUN 5.8 L Creatinine 0.8 Est GFR (CKD-EPI)AfAm 112.53 Est GFR (CKD-EPI)NonAf 97.10 POC Glucometer 97 137 Random Glucose 99 Calcium 8.0 L Total Bilirubin 0.8 AST 11 L ALT 14 Alkaline Phosphatase 91 Total Protein 6.1 L Albumin 2.6 L Active Medications Generic Name Dose Route Start Last Admin Trade Name Freq PRN Reason Stop Dose Admin Sodium Chloride 1,000 mls @ 120 mls/hr 06/17/19 23:15 06/20/19 01:00 Normal Saline - IV 120 mls/hr ASDIR LIZ Administration Piperacillin Sod/Tazobactam 50 mls @ 100 mls/hr 06/19/19 02:00 06/20/19 09:11 Sod 3.375 gm/ Dextrose IVPB 100 mls/hr Q8H-IV LIZ Administration Protocol Insulin Aspart 1 vial 06/18/19 07:00 06/20/19 12:13 Novolog Vial Sliding Scale - SQ Not Given ACHS LIZ Protocol Melatonin 5 mg 06/19/19 22:29 06/19/19 22:36 Melatonin PO 5 mg HS PRN Administration INSOMNIA Morphine Sulfate 4 mg 06/18/19 01:42 06/20/19 09:09 Morphine Sulfate IVPUSH 4 mg Q4H PRN Administration PAIN LEVEL 7 - 10 CBC, BMP 06/20/19 06:00 06/20/19 06:00 ASSESSMENT/PLAN: 59 year old male with PMH of DM. He presented to the ER with complaints of RLQ abdominal pain for the past 2 days and intermittent left sided chest pain that he has had for the past several months, more frequent for the past 5 days. Found to have perforated appendicitis on CT AP. #sepsis 2/2 Perforated appendicitis, improving * CT AP: Ruptured appendicitis, phlegmon formation, no free air, Appendicial perforation with phlegmon and with no signs of free perforation, peritonitis, or abscess may initially be managed conservatively * cont zosyn, ID on board * Surgery and IR on board * IR no need for intervention as there is no collection * surgery to decide after abx when to operate Dr. Ayala * IV fluids * Pain control with morphine * follow cx * type and screen , PT, PTT for possible surgery * start clear liquid diet as of now * Repeat Ct A/P with IV and oral contrast tomorrow #Chest pain * Trop negative x 2 * , EKG shows sinus tachy with no ST, T wave abnormalities * Tele monitoring * Cardio consult placed # Soft murmur with no specific location and character marty mojica stefiona per cardiology # DM * BGM, ISS ACHS * HbA1c 9.9 #FEN * IV N/S @ 120, given 1L bolus * monitor lytes and replenished as needed * clear liquid diet #DVT proph * SCDs, Holding chemical AC for possible surgery in AM Visit type - Emergency Visit Emergency Visit: Yes ED Registration Date: 06/17/19 Care time: The patient presented to the Emergency Department on the above date and was hospitalized for further evaluation of their emergent condition. - New Patient This patient is new to me today: No - Critical Care Critical Care patient: No ATTENDING PHYSICIAN STATEMENT I saw and evaluated the patient. I reviewed the resident's note and discussed the case with the resident. I agree with the resident's findings and plan as documented. SUBJECTIVE: OBJECTIVE: ASSESSMENT AND PLAN:
--- NOTE | 2019-06-20 18:12 | PN ---
Teaching Attending Note Name of Resident: Wilber Jordan ATTENDING PHYSICIAN STATEMENT I saw and evaluated the patient. I reviewed the resident's note and discussed the case with the resident. I agree with the resident's findings and plan as documented. SUBJECTIVE: No complaints. Ambulating in hallway. Tolerating clear liquids. OBJECTIVE: Vital Signs Period Temp Pulse Resp BP Sys/Stevens Pulse Ox Last 24 Hr 97.6 F-100.3 F 93-98 20-20 122-137/62-93 96-96 GENERAL: The patient is awake, alert, and fully oriented, in no acute distress. LUNGS: Breath sounds equal, clear to auscultation bilaterally, no wheezes, no crackles, no accessory muscle use. HEART: Regular rate and rhythm, S1, S2. ABDOMEN: Soft, (+) mild RLQ tenderness, nondistended, normoactive bowel sounds, no guarding, no rebound, no hepatosplenomegaly, no masses. EXTREMITIES: 2+ pulses, warm, well-perfused, no edema. Laboratory Results - last 24 hr 06/19/19 06/20/19 06/20/19 21:44 06:00 06:00 WBC 8.5 RBC 3.02 L Hgb 9.9 L Hct 28.8 L MCV 95.4 MCH 32.7 MCHC 34.2 RDW 12.4 Plt Count 269 MPV 7.3 L Absolute Neuts (auto) 5.8 Neutrophils % 68.4 Lymphocytes % 19.9 D Monocytes % 8.4 Eosinophils % 2.9 D Basophils % 0.4 Nucleated RBC % 0 Sodium 136 Potassium 3.5 Chloride 104 Carbon Dioxide 23 Anion Gap 8 BUN 5.8 L Creatinine 0.8 Est GFR (CKD-EPI)AfAm 112.53 Est GFR (CKD-EPI)NonAf 97.10 POC Glucometer 161 Random Glucose 99 Calcium 8.0 L Total Bilirubin 0.8 AST 11 L ALT 14 Alkaline Phosphatase 91 Total Protein 6.1 L Albumin 2.6 L 06/20/19 06/20/19 06/20/19 06:21 11:35 16:21 WBC RBC Hgb Hct MCV MCH MCHC RDW Plt Count MPV Absolute Neuts (auto) Neutrophils % Lymphocytes % Monocytes % Eosinophils % Basophils % Nucleated RBC % Sodium Potassium Chloride Carbon Dioxide Anion Gap BUN Creatinine Est GFR (CKD-EPI)AfAm Est GFR (CKD-EPI)NonAf POC Glucometer 97 137 127 Random Glucose Calcium Total Bilirubin AST ALT Alkaline Phosphatase Total Protein Albumin Current Medications Generic Name Dose Route Start Last Admin Trade Name Freq PRN Reason Stop Dose Admin Sodium Chloride 1,000 mls @ 120 mls/hr 06/17/19 23:15 06/20/19 01:00 Normal Saline - IV 120 mls/hr ASDIR LIZ Administration Piperacillin Sod/Tazobactam 50 mls @ 100 mls/hr 06/19/19 02:00 06/20/19 17:38 Sod 3.375 gm/ Dextrose IVPB 100 mls/hr Q8H-IV LIZ Administration Protocol Insulin Aspart 1 vial 06/18/19 07:00 06/20/19 17:37 Novolog Vial Sliding Scale - SQ Not Given ACHS LIZ Protocol Melatonin 5 mg 06/19/19 22:29 06/19/19 22:36 Melatonin PO 5 mg HS PRN Administration INSOMNIA Morphine Sulfate 4 mg 06/18/19 01:42 06/20/19 16:24 Morphine Sulfate IVPUSH 4 mg Q4H PRN Administration PAIN LEVEL 7 - 10 ASSESSMENT AND PLAN: This is a 59 year old man with a history of type 2 DM who presented to the ED with RLQ abdominal pain and left sided chest pain. 1. Sepsis (fever, leukocytosis, tachycardia) secondary to perforated appendicitis with abscess - Continue IV fluid, Zosyn - Continue clear liquids - Repeat CTAP - Blood cultures negative after 48 hours - Plan for interval appendectomy 2. Chest pain - Troponin negative x3 - No ischemic changes on EKG 3. Systolic murmur - Echo shows mild concentric LVH, LVEF 70%, impaired LV relaxation, normal RV , normal LA, normal RA, trace MR, trace TR 4. Type 2 DM, uncontrolled - HbA1c 9.9 - Continue Novolog sliding scale
[2019-06-20] MEDS: MELATONIN 5 MG TABLETS PO PRN (21:21)
[2019-06-21] MEDS ORDERED: DEXTROSE 5%-WATER - 50 ML IVPB ONE ×3 (00:33→16:46)
[2019-06-21] MEDS ORDERED: PIPERACILLIN/TAZOBACTAM 3.375 GM VIAL IVPB ONE ×3 (00:33→16:45)
[2019-06-21] MEDS: PIPERACILLIN/TAZOB 3.375 GM 3.375 GM in DEXTROSE 5%-WATER - 50 ML IVPB SCH ×3 (01:06→17:33)
[2019-06-21] MEDS: morphine SULFATE 4 MG/ML VIAL IVPUSH PRN ×3 (04:34→21:11)
[2019-06-21] MEDS: INSULIN SLIDING SCALE (NOVOLOG) 1 VIAL SQ SCH ×5 (06:03→22:13)
--- NOTE | 2019-06-21 06:13 | PN ---
Physical Exam: SUBJECTIVE: Patient seen and examined no acute events ove rnight RLQ pain improved , just asking for tyelnol for headache , denies any fever, chills, N/V/D/C repeat Ct A/P with Contrast tomorrow OBJECTIVE: Vital Signs Period Temp Pulse Resp BP Sys/Stevens Pulse Ox Last 24 Hr 97.6 F-100.3 F 96-100 19-20 132-137/80-93 96-96 GENERAL: AAOx3 in NAD HEAD: NC/AT EYES: EOMI, Conjunctiva clear, sclera anicteric ENT: moist mucous membrane NECK: Supple, no JVD LUNGS: CTA B/L, no crackles no wheezing no accessory muscle use. HEART: RRR, , normal s1, s2,2/6 systolic murmur LUSB and LLSB ABDOMEN: Soft, ND, RLQ Tenderness, +BS 4 Q, no CVA Tenderness LOWER EXTREMITIES: no edema, +2DP pulse, NEUROLOGICAL: No focal deficit. Normal speech. gait not observed. PSYCHIATRIC: Cooperative. Good eye contact. Appropriate mood and affect. SKIN: Warm, dry, Laboratory Results - last 24 hr 06/20/19 06/20/19 06/20/19 06:00 06:00 06:21 WBC 8.5 RBC 3.02 L Hgb 9.9 L Hct 28.8 L MCV 95.4 MCH 32.7 MCHC 34.2 RDW 12.4 Plt Count 269 MPV 7.3 L Absolute Neuts (auto) 5.8 Neutrophils % 68.4 Lymphocytes % 19.9 D Monocytes % 8.4 Eosinophils % 2.9 D Basophils % 0.4 Nucleated RBC % 0 Sodium 136 Potassium 3.5 Chloride 104 Carbon Dioxide 23 Anion Gap 8 BUN 5.8 L Creatinine 0.8 Est GFR (CKD-EPI)AfAm 112.53 Est GFR (CKD-EPI)NonAf 97.10 POC Glucometer 97 Random Glucose 99 Calcium 8.0 L Total Bilirubin 0.8 AST 11 L ALT 14 Alkaline Phosphatase 91 Total Protein 6.1 L Albumin 2.6 L 06/20/19 06/20/19 06/20/19 11:35 16:21 21:19 WBC RBC Hgb Hct MCV MCH MCHC RDW Plt Count MPV Absolute Neuts (auto) Neutrophils % Lymphocytes % Monocytes % Eosinophils % Basophils % Nucleated RBC % Sodium Potassium Chloride Carbon Dioxide Anion Gap BUN Creatinine Est GFR (CKD-EPI)AfAm Est GFR (CKD-EPI)NonAf POC Glucometer 137 127 158 Random Glucose Calcium Total Bilirubin AST ALT Alkaline Phosphatase Total Protein Albumin 06/21/19 05:31 WBC RBC Hgb Hct MCV MCH MCHC RDW Plt Count MPV Absolute Neuts (auto) Neutrophils % Lymphocytes % Monocytes % Eosinophils % Basophils % Nucleated RBC % Sodium Potassium Chloride Carbon Dioxide Anion Gap BUN Creatinine Est GFR (CKD-EPI)AfAm Est GFR (CKD-EPI)NonAf POC Glucometer 128 Random Glucose Calcium Total Bilirubin AST ALT Alkaline Phosphatase Total Protein Albumin Active Medications Generic Name Dose Route Start Last Admin Trade Name Freq PRN Reason Stop Dose Admin Sodium Chloride 1,000 mls @ 120 mls/hr 06/17/19 23:15 06/20/19 23:30 Normal Saline - IV 120 mls/hr ASDIR LIZ Administration Piperacillin Sod/Tazobactam 50 mls @ 100 mls/hr 06/19/19 02:00 06/21/19 01:06 Sod 3.375 gm/ Dextrose IVPB 100 mls/hr Q8H-IV LIZ Administration Protocol Insulin Aspart 1 vial 06/18/19 07:00 06/21/19 06:03 Novolog Vial Sliding Scale - SQ Not Given ACHS LIZ Protocol Melatonin 5 mg 06/19/19 22:29 06/20/19 21:21 Melatonin PO 5 mg HS PRN Administration INSOMNIA Morphine Sulfate 4 mg 06/18/19 01:42 06/21/19 04:34 Morphine Sulfate IVPUSH 4 mg Q4H PRN Administration PAIN LEVEL 7 - 10 CBC, BMP 06/21/19 05:55 06/21/19 05:55 CT A/P with IV and oral contrast Jun IMPRESSION: Acute appendicitis with improved findings as compared to prior imaging. Persistent dilatation of the appendix and phlegmonous reaction which has improved. Persistent edema within the cecum. No drainable fluid collections seen. ASSESSMENT/PLAN: 59 year old male with PMH of DM. He presented to the ER with complaints of RLQ abdominal pain for the past 2 days and intermittent left sided chest pain that he has had for the past several months, more frequent for the past 5 days. Found to have perforated appendicitis on CT AP. #sepsis 2/2 Perforated appendicitis, improving * CT AP: Ruptured appendicitis, phlegmon formation, no free air, Appendicial perforation with phlegmon and with no signs of free perforation, peritonitis, or abscess may initially be managed conservatively * cont zosyn, ID on board * Surgery and IR on board * IR no need for intervention as there is no collection * surgery to decide after abx when to operate Dr. Ayala * IV fluids * Pain control with morphine * follow cx * type and screen , PT, PTT for possible surgery * start clear liquid diet as of now * Repeat Ct A/P with IV and oral contrast noted above : appendicities , phlegmon and widended appendix ,improved compare to previose images #Chest pain * Trop negative x 2 * , EKG shows sinus tachy with no ST, T wave abnormalities * DC Tele * Cardio consult placed # Soft murmur with no specific location and character deffer yunior stesing per cardiology # DM * BGM, ISS ACHS * HbA1c 9.9 #FEN * IV N/S @ 120, given 1L bolus * monitor lytes and replenished as needed * clear liquid diet #DVT proph * SCDs, Holding chemical AC for possible surgery in AM Visit type - Emergency Visit Emergency Visit: Yes ED Registration Date: 06/17/19 Care time: The patient presented to the Emergency Department on the above date and was hospitalized for further evaluation of their emergent condition. - New Patient This patient is new to me today: No - Critical Care Critical Care patient: No - Discharge Referral Referred to [facility] Med P.C[facility] No ATTENDING PHYSICIAN STATEMENT I saw and evaluated the patient. I reviewed the resident's note and discussed the case with the resident. I agree with the resident's findings and plan as documented. SUBJECTIVE: OBJECTIVE: ASSESSMENT AND PLAN:
[2019-06-21 06:48] LABS: BASO % 0.6 % (0-2.0); EOS % 1.9 % (0-4.5); HEMATOCRIT 28.4 % (35.4-49); HEMOGLOBIN 9.8 GM/dL (11.7-16.9); MCH 32.6 pg (25.7-33.7); MCHC 34.4 g/dl (32.0-35.9); MEAN CELL VOLUME 94.9 fl (80-96); MEAN PLT VOLUME 7.2 fl (7.5-11.1); MONO % 12.2 % (3.8-10.2); NEUT % 68.3 % (42.8-82.8); PLATELET COUNT 299 K/MM3 (134-434); RBC 2.99 M/mm3 (4.00-5.60); RDW 12.4 % (11.9-15.9); WHITE BLOOD COUNT 6.8 K/mm3 (4.0-10.0)
[2019-06-21 07:19] LABS: ALBUMIN 2.7 g/dl (3.4-5.0); BILIRUBIN,TOTAL 0.5 mg/dL (0.2-1); CALCIUM 8.3 mg/dL (8.5-10.1); CREATININE 0.9 mg/dL (0.55-1.3); MAGNESIUM 1.7 mg/dL (1.8-2.4); PHOSPHOROUS 3.2 mg/dL (2.5-4.9); POTASSIUM 3.5 mmol/L (3.5-5.1); TOT PROT 6.4 g/dl (6.4-8.2)
[2019-06-21 07:56] LABS: BLOOD UREA NITROGEN 2.9 mg/dL (7-18)
[2019-06-21] MEDS ORDERED: ACETAMINOPHEN 325 MG TABLET (FP) PO PRN (07:56)
--- NOTE | 2019-06-21 09:51 | PN ---
Progress Note (short form) - Note Progress Note: General Surgery: Pt states that he is comfortable this am, he had a BM and is passing flatus this am. Tolerating clears. Had a low grade temp last pm. Vital Signs Period Temp Pulse Resp BP Sys/Stevens Pulse Ox Last 24 Hr 97.6 F-100.3 F 96-101 19-20 132-137/80-93 96 GEN: A&0x3 ABD: soft, non-distended, mild RLQ tenderness CBC, BMP 06/21/19 05:55 06/21/19 05:55 A/P: 59 yo male with perforated appendicitis Continue on clears today, going to have a CT scan this am with oral /iv contrast-no drainable collection IV abx OOB ambualte Pain managment and advance diet as toelrated D/w Dr. Hanson
--- NOTE | 2019-06-21 10:30 | PN ---
Progress Note (short form) - Note Progress Note: s: no chest pain, palps, dizziness, dyspnea Current Medications Generic Name Dose Route Start Last Admin Trade Name Freq PRN Reason Stop Dose Admin Acetaminophen 650 mg 06/21/19 07:56 06/21/19 08:00 Tylenol - PO 650 mg Q6H PRN Administration PAIN Sodium Chloride 1,000 mls @ 120 mls/hr 06/17/19 23:15 06/20/19 23:30 Normal Saline - IV 120 mls/hr ASDIR LIZ Administration Piperacillin Sod/Tazobactam 50 mls @ 100 mls/hr 06/19/19 02:00 06/21/19 09:42 Sod 3.375 gm/ Dextrose IVPB 100 mls/hr Q8H-IV LIZ Administration Protocol Insulin Aspart 1 vial 06/18/19 07:00 06/21/19 06:03 Novolog Vial Sliding Scale - SQ Not Given ACHS LIZ Protocol Melatonin 5 mg 06/19/19 22:29 06/20/19 21:21 Melatonin PO 5 mg HS PRN Administration INSOMNIA Morphine Sulfate 4 mg 06/18/19 01:42 06/21/19 04:34 Morphine Sulfate IVPUSH 4 mg Q4H PRN Administration PAIN LEVEL 7 - 10 Vital Signs Period Temp Pulse Resp BP Sys/Stevens Pulse Ox Last 24 Hr 97.6 F-98 F 97-101 19-19 132-135/80-87 96 Constitutional: Yes: Well Nourished, No Distress Eyes: No: Sclera Icterus Respiratory: Yes: CTA Bilaterally. No: Accessory Muscle Use, Rales, Wheezes Gastrointestinal: Yes: Normal Bowel Sounds. No: Distention, Hepatomegaly, Palpable Mass, Tenderness Cardiovascular: Yes: Regular Rate and Rhythm JVD: No Carotid Bruit: No PMI: Non-Displaced Heart Sounds: Yes: S1, S2. No: Gallop Murmur: Yes: Systolic Murmur (brief CARISSA at apex (2/6) > RUSB). No: Diastolic Murmur Musculoskeletal: Yes: Other (No kyphosis) Extremities: No: Cool, Cyanosis Edema: No Peripheral Pulses: 2+ Left Carotid, 2+ Right Carotid, 2+ Left Doralis Pedis, 2+ Right Dorsalis Pedis Integumentary: No: Jaundice Neurological: Yes: Alert, Oriented (x3) Psychiatri: No: Agitated CBC, BMP 06/21/19 05:55 06/21/19 05:55 Assessment/Plan ECG #1: sinus tach, LAFB, no path q's, no ST-T #2: no change CXR: clear lungs/pleura echo 06/2019 nl LV function, mild conc LVH, nl RV, tr MR, tr TR tele: sinus appendicitis, ruptured/preop CV eval - manage per surgery -continue IVF -remainder of plan per hospitalist -Revised CVRI = 0, normal functional capacity. no s/sx of active ischemia/chf. as long as 2nd trop negative, pt is at acceptable CV risk for invasive procedures/anesthesia as needed per surgery chest pain: -acute on chronic sx's -trop neg x 3 -ecg nonischemic -longstanding sx, c/w gas/bloating--relieved by passing gas. no new features. -defer stress testing murmur: -soft murmur, unusual features/locatoin. -echo unremarkable -outpt f/u rec'd with us--he agrees dc tele
[2019-06-21] MEDS ORDERED: MAGNESIUM SULF 50% (8.12 MEQ/2 ML-1 GM VIAL) IVPB ONE (15:31)
--- NOTE | 2019-06-21 15:38 | PN ---
Teaching Attending Note Name of Resident: Wilber Jordan ATTENDING PHYSICIAN STATEMENT I saw and evaluated the patient. I reviewed the resident's note and discussed the case with the resident. I agree with the resident's findings and plan as documented. SUBJECTIVE: Patient seen and examined bedside. No overnight fevers, abdominal pain markedly improved, tolerating clears. Will cont. to monitor. Objective: GENERAL: The patient is awake, alert, and fully oriented, in no acute distress. LUNGS: Breath sounds equal, clear to auscultation bilaterally, no wheezes, no crackles, no accessory muscle use. HEART: Regular rate and rhythm, S1, S2. ABDOMEN: Soft, no tenderness to palpation, nondistended, normoactive bowel sounds, no guarding, no rebound, no hepatosplenomegaly, no masses. EXTREMITIES: 2+ pulses, warm, well-perfused, no edema. Vital Signs - 24 hr 06/20/19 06/21/19 06/21/19 21:00 05:00 09:00 Temperature 97.9 F 98 F 98 F Pulse Rate 100 H 101 H 98 H Respiratory 19 19 19 Rate Blood Pressure 135/80 133/85 130/70 O2 Sat by Pulse 96 96 Oximetry (%) 06/21/19 14:00 Temperature 98.3 F Pulse Rate 95 H Respiratory Rate Blood Pressure 118/70 O2 Sat by Pulse Oximetry (%) Microbiology 06/18/19 06:28 Blood - Peripheral Venous Blood Culture - Preliminary NO GROWTH OBTAINED AFTER 72 HOURS, INCUBATION TO CONTINUE FOR 2 DAYS. 06/18/19 06:20 Blood - Peripheral Venous Blood Culture - Preliminary NO GROWTH OBTAINED AFTER 72 HOURS, INCUBATION TO CONTINUE FOR 2 DAYS. 06/17/19 23:14 Urine - Urine Clean Catch Urine Culture - Final NO GROWTH OBTAINED Laboratory Results - last 24 hr 06/20/19 06/20/19 06/21/19 16:21 21:19 05:31 WBC RBC Hgb Hct MCV MCH MCHC RDW Plt Count MPV Absolute Neuts (auto) Neutrophils % Lymphocytes % Monocytes % Eosinophils % Basophils % Nucleated RBC % Sodium Potassium Chloride Carbon Dioxide Anion Gap BUN Creatinine Est GFR (CKD-EPI)AfAm Est GFR (CKD-EPI)NonAf POC Glucometer 127 158 128 Random Glucose Calcium Phosphorus Magnesium Total Bilirubin AST ALT Alkaline Phosphatase Total Protein Albumin 06/21/19 06/21/19 06/21/19 05:55 05:55 11:44 WBC 6.8 RBC 2.99 L Hgb 9.8 L Hct 28.4 L MCV 94.9 MCH 32.6 MCHC 34.4 RDW 12.4 Plt Count 299 MPV 7.2 L Absolute Neuts (auto) 4.6 Neutrophils % 68.3 Lymphocytes % 17.0 Monocytes % 12.2 H Eosinophils % 1.9 Basophils % 0.6 Nucleated RBC % 0 Sodium 134 L Potassium 3.5 Chloride 101 Carbon Dioxide 24 Anion Gap 8 BUN 2.9 L* Creatinine 0.9 Est GFR (CKD-EPI)AfAm 107.22 Est GFR (CKD-EPI)NonAf 92.51 POC Glucometer 95 Random Glucose 120 H Calcium 8.3 L Phosphorus 3.2 Magnesium 1.7 L Total Bilirubin 0.5 AST 15 ALT 15 Alkaline Phosphatase 88 Total Protein 6.4 Albumin 2.7 L Current Medications Generic Name Dose Route Start Last Admin Trade Name Freq PRN Reason Stop Dose Admin Acetaminophen 650 mg 06/21/19 07:56 06/21/19 08:00 Tylenol - PO 650 mg Q6H PRN Administration PAIN Sodium Chloride 1,000 mls @ 120 mls/hr 06/17/19 23:15 06/20/19 23:30 Normal Saline - IV 120 mls/hr ASDIR LIZ Administration Piperacillin Sod/Tazobactam 50 mls @ 100 mls/hr 06/19/19 02:00 06/21/19 09:42 Sod 3.375 gm/ Dextrose IVPB 100 mls/hr Q8H-IV ILZ Administration Protocol Insulin Aspart 1 vial 06/18/19 07:00 06/21/19 11:51 Novolog Vial Sliding Scale - SQ Not Given ACHS LIZ Protocol Magnesium Sulfate 2 gm 06/21/19 15:31 Magnesium Sulfate IVPB 06/21/19 15:32 ONCE ONE Melatonin 5 mg 06/19/19 22:29 06/20/19 21:21 Melatonin PO 5 mg HS PRN Administration INSOMNIA Morphine Sulfate 4 mg 06/18/19 01:42 06/21/19 04:34 Morphine Sulfate IVPUSH 4 mg Q4H PRN Administration PAIN LEVEL 7 - 10 A/p: 59 year old AA Male, h/o T2DM, who presented to the ED with RLQ abdominal pain and left sided chest pain 2/2 ruptured appendix. Sepsis (fever, leukocytosis, tachycardia) secondary to perforated appendicitis with abscess cont. IVF/IV abx/hold off CT A/P for now as patient clinically improving Serial abdominal exams, monitor VS, CBC/lytes, Morphine PRN for pain Surgery consult: Dr Dubon Chest pain Resolved, EKG not showing ischemic changes, trops neg x2, cont. to monitor Type 2 DM, uncontrolled ISS, basal insulin as needed counseled on diet/exercise/weightloss and management of sugar DVT ppx: SCD
[2019-06-21] MEDS: MELATONIN 5 MG TABLETS PO PRN (21:13)
[2019-06-21] MEDS ORDERED: MELATONIN 5 MG TABLETS PO PRN (21:55)
[2019-06-21] MEDS: ACETAMINOPHEN 325 MG TABLET (FP) PO PRN (23:41)
[2019-06-21] MEDS: SODIUM CHLORIDE 1,000 ML IV SCH (23:41)
[2019-06-22] MEDS ORDERED: DEXTROSE 5%-WATER - 50 ML IVPB ONE ×3 (03:02→17:25)
[2019-06-22] MEDS ORDERED: PIPERACILLIN/TAZOBACTAM 3.375 GM VIAL IVPB ONE ×3 (03:02→17:25)
[2019-06-22] MEDS: morphine SULFATE 4 MG/ML VIAL IVPUSH PRN ×2 (03:04→09:02)
[2019-06-22] MEDS: PIPERACILLIN/TAZOB 3.375 GM 3.375 GM in DEXTROSE 5%-WATER - 50 ML IVPB SCH ×3 (03:04→18:05)
[2019-06-22] MEDS ORDERED: INSULIN (NOVOLOG) ASPART 100 UNITS/ML 10ML VIAL ONE (06:02)
[2019-06-22] MEDS: INSULIN SLIDING SCALE (NOVOLOG) 1 VIAL SQ SCH ×4 (06:10→21:39)
--- NOTE | 2019-06-22 06:31 | PN ---
Physical Exam: SUBJECTIVE: Patient seen and examined no acute events ove rnight RLQ pain improved , just asking for tyelnol for headache , denies any fever, chills, N/V/D/C complain of some headach, frontal , pulsating not improving with tylenol will Ct head and do esr , crp , OBJECTIVE: Vital Signs Period Temp Pulse Resp BP Sys/Stevens Pulse Ox Last 24 Hr 98 F-99.5 F 92-106 19-20 118-146/60-96 96-99 GENERAL: AAOx3 in NAD HEAD: NC/AT EYES: EOMI, Conjunctiva clear, sclera anicteric ENT: moist mucous membrane NECK: Supple, no JVD LUNGS: CTA B/L, no crackles no wheezing no accessory muscle use. HEART: RRR, , normal s1, s2,2/6 systolic murmur LUSB and LLSB ABDOMEN: Soft, ND, RLQ Tenderness, +BS 4 Q, no CVA Tenderness LOWER EXTREMITIES: no edema, +2DP pulse, NEUROLOGICAL: No focal deficit. Normal speech. gait not observed. PSYCHIATRIC: Cooperative. Good eye contact. Appropriate mood and affect. SKIN: Warm, dry, Laboratory Results - last 24 hr 06/21/19 06/21/19 06/21/19 05:55 05:55 11:44 WBC 6.8 RBC 2.99 L Hgb 9.8 L Hct 28.4 L MCV 94.9 MCH 32.6 MCHC 34.4 RDW 12.4 Plt Count 299 MPV 7.2 L Absolute Neuts (auto) 4.6 Neutrophils % 68.3 Lymphocytes % 17.0 Monocytes % 12.2 H Eosinophils % 1.9 Basophils % 0.6 Nucleated RBC % 0 Sodium 134 L Potassium 3.5 Chloride 101 Carbon Dioxide 24 Anion Gap 8 BUN 2.9 L* Creatinine 0.9 Est GFR (CKD-EPI)AfAm 107.22 Est GFR (CKD-EPI)NonAf 92.51 POC Glucometer 95 Random Glucose 120 H Calcium 8.3 L Phosphorus 3.2 Magnesium 1.7 L Total Bilirubin 0.5 AST 15 ALT 15 Alkaline Phosphatase 88 Total Protein 6.4 Albumin 2.7 L 06/21/19 06/21/19 06/22/19 16:55 21:11 06:08 WBC RBC Hgb Hct MCV MCH MCHC RDW Plt Count MPV Absolute Neuts (auto) Neutrophils % Lymphocytes % Monocytes % Eosinophils % Basophils % Nucleated RBC % Sodium Potassium Chloride Carbon Dioxide Anion Gap BUN Creatinine Est GFR (CKD-EPI)AfAm Est GFR (CKD-EPI)NonAf POC Glucometer 100 105 94 Random Glucose Calcium Phosphorus Magnesium Total Bilirubin AST ALT Alkaline Phosphatase Total Protein Albumin Active Medications Generic Name Dose Route Start Last Admin Trade Name Freq PRN Reason Stop Dose Admin Acetaminophen 650 mg 06/21/19 21:55 06/21/19 23:41 Tylenol - PO 650 mg Q6H PRN Administration PAIN LEVEL 1-5 Sodium Chloride 1,000 mls @ 120 mls/hr 06/21/19 21:55 06/21/19 23:41 Normal Saline - IV 120 mls/hr ASDIR LIZ Administration Piperacillin Sod/Tazobactam 50 mls @ 100 mls/hr 06/22/19 02:00 06/22/19 03:04 Sod 3.375 gm/ Dextrose IVPB 100 mls/hr Q8H-IV LIZ Administration Protocol Insulin Aspart 1 vial 06/21/19 22:00 06/22/19 06:10 Novolog Vial Sliding Scale - SQ Not Given ACHS LIZ Protocol Melatonin 5 mg 06/21/19 21:55 Melatonin PO HS PRN INSOMNIA Morphine Sulfate 4 mg 06/21/19 21:55 06/22/19 03:04 Morphine Sulfate IVPUSH 4 mg Q4H PRN Administration PAIN LEVEL 7 - 10 CBC, BMP 06/22/19 08:10 06/22/19 08:10 CT A/P with IV and oral contrast Jun IMPRESSION: Acute appendicitis with improved findings as compared to prior imaging. Persistent dilatation of the appendix and phlegmonous reaction which has improved. Persistent edema within the cecum. No drainable fluid collections seen. ASSESSMENT/PLAN: 59 year old male with PMH of DM. He presented to the ER with complaints of RLQ abdominal pain for the past 2 days and intermittent left sided chest pain that he has had for the past several months, more frequent for the past 5 days. Found to have perforated appendicitis on CT AP. #sepsis 2/2 Perforated appendicitis, improving * CT AP: Ruptured appendicitis, phlegmon formation, no free air, Appendicial perforation with phlegmon and with no signs of free perforation, peritonitis, or abscess may initially be managed conservatively * cont zosyn, ID on board * Surgery and IR on board * IR no need for intervention as there is no collection * surgery to decide after abx when to operate Dr. Ayala * dc IV fluids * Pain control with morphine * follow cx * type and screen , PT, PTT for possible surgery * advance diet * Repeat Ct A/P with IV and oral contrast noted above : appendicities , phlegmon and widended appendix ,improved compare to previose images # Headache : likley migrain but will r.o any other serious condition will do Ct head and ESR/CRP in Am if Ct negative will give exedrin #Chest pain * Trop negative x 2 * , EKG shows sinus tachy with no ST, T wave abnormalities * DC Tele * Cardio consult placed # Soft murmur with no specific location and character deffer stres stesing per cardiology # DM * BGM, ISS ACHS * HbA1c 9.9 #FEN * dc fluids * monitor lytes and replenished as needed * clear liquid diet #DVT proph * SCDs, Holding chemical AC Visit type - Emergency Visit Emergency Visit: Yes ED Registration Date: 06/17/19 Care time: The patient presented to the Emergency Department on the above date and was hospitalized for further evaluation of their emergent condition. - New Patient This patient is new to me today: No - Critical Care Critical Care patient: No ATTENDING PHYSICIAN STATEMENT I saw and evaluated the patient. I reviewed the resident's note and discussed the case with the resident. I agree with the resident's findings and plan as documented. SUBJECTIVE: OBJECTIVE: ASSESSMENT AND PLAN:
[2019-06-22] MEDS: SODIUM CHLORIDE 1,000 ML IV SCH (09:03)
[2019-06-22 09:40] LABS: BASO % 0.5 % (0-2.0); EOS % 1.1 % (0-4.5); HEMATOCRIT 31.6 % (35.4-49); HEMOGLOBIN 10.7 GM/dL (11.7-16.9); LYMPH % 14.2 % (8-40); MCH 32.5 pg (25.7-33.7); MCHC 33.7 g/dl (32.0-35.9); MEAN CELL VOLUME 96.4 fl (80-96); MEAN PLT VOLUME 7.3 fl (7.5-11.1); MONO % 11.3 % (3.8-10.2); NEUT % 72.9 % (42.8-82.8); PLATELET COUNT 337 K/MM3 (134-434); RBC 3.27 M/mm3 (4.00-5.60); RDW 12.5 % (11.9-15.9); WHITE BLOOD COUNT 10.4 K/mm3 (4.0-10.0)
[2019-06-22 10:25] LABS: ALBUMIN 2.9 g/dl (3.4-5.0); BILIRUBIN,TOTAL 0.5 mg/dL (0.2-1); CALCIUM 8.3 mg/dL (8.5-10.1); CREATININE 0.8 mg/dL (0.55-1.3); POTASSIUM 3.5 mmol/L (3.5-5.1)
[2019-06-22 10:27] LABS: BLOOD UREA NITROGEN 2.8 mg/dL (7-18)
[2019-06-22] MEDS: ACETAMINOPHEN 325 MG TABLET (FP) PO PRN (14:47)
--- NOTE | 2019-06-22 15:02 | PN ---
Progress Note (short form) - Note Progress Note: s: no chest pain, palps, dizziness, dyspnea Current Medications Generic Name Dose Route Start Last Admin Trade Name Freq PRN Reason Stop Dose Admin Acetaminophen 650 mg 06/21/19 21:55 06/22/19 14:47 Tylenol - PO 650 mg Q6H PRN Administration PAIN LEVEL 1-5 Sodium Chloride 1,000 mls @ 120 mls/hr 06/21/19 21:55 06/22/19 09:03 Normal Saline - IV 120 mls/hr ASDIR LIZ Administration Piperacillin Sod/Tazobactam 50 mls @ 100 mls/hr 06/22/19 02:00 06/22/19 09:03 Sod 3.375 gm/ Dextrose IVPB 100 mls/hr Q8H-IV LIZ Administration Protocol Insulin Aspart 1 vial 06/21/19 22:00 06/22/19 12:12 Novolog Vial Sliding Scale - SQ Not Given ACHS LIZ Protocol Melatonin 5 mg 06/21/19 21:55 Melatonin PO HS PRN INSOMNIA Morphine Sulfate 4 mg 06/21/19 21:55 06/22/19 09:02 Morphine Sulfate IVPUSH 4 mg Q4H PRN Administration PAIN LEVEL 7 - 10 Vital Signs Period Temp Pulse Resp BP Sys/Stevens Pulse Ox Last 24 Hr 98 F-99.5 F 76-106 18-20 116-146/60-96 94-99 Constitutional: Yes: Well Nourished, No Distress Eyes: No: Sclera Icterus Respiratory: Yes: CTA Bilaterally. No: Accessory Muscle Use, Rales, Wheezes Gastrointestinal: Yes: Normal Bowel Sounds. No: Distention, Hepatomegaly, Palpable Mass, Tenderness Cardiovascular: Yes: Regular Rate and Rhythm JVD: No Carotid Bruit: No PMI: Non-Displaced Heart Sounds: Yes: S1, S2. No: Gallop Murmur: Yes: Systolic Murmur (brief CARISSA at apex (2/6) > RUSB). No: Diastolic Murmur Musculoskeletal: Yes: Other (No kyphosis) Extremities: No: Cool, Cyanosis Edema: No Peripheral Pulses: 2+ Left Carotid, 2+ Right Carotid, 2+ Left Doralis Pedis, 2+ Right Dorsalis Pedis Integumentary: No: Jaundice Neurological: Yes: Alert, Oriented (x3) Psychiatri: No: Agitated CBC, BMP 06/22/19 08:10 06/22/19 08:10 Assessment/Plan ECG #1: sinus tach, LAFB, no path q's, no ST-T #2: no change CXR: clear lungs/pleura echo 06/2019 nl LV function, mild conc LVH, nl RV, tr MR, tr TR appendicitis, ruptured/preop CV eval - manage per surgery -continue IVF -remainder of plan per hospitalist -Revised CVRI = 0, normal functional capacity. no s/sx of active ischemia/chf. as long as 2nd trop negative, pt is at acceptable CV risk for invasive procedures/anesthesia as needed per surgery chest pain: -acute on chronic sx's -trop neg x 3 -ecg nonischemic -longstanding sx, c/w gas/bloating--relieved by passing gas. no new features. -defer stress testing murmur: -soft murmur, unusual features/locatoin. -echo unremarkable -outpt f/u rec'd with us--he agrees
--- NOTE | 2019-06-22 18:13 | PN ---
Teaching Attending Note Name of Resident: Wilber Jordan ATTENDING PHYSICIAN STATEMENT I saw and evaluated the patient. I reviewed the resident's note and discussed the case with the resident. I agree with the resident's findings and plan as documented. SUBJECTIVE: Patient seen and examined bedside. Endorses improvement of abdominal pain, c/o headache, ?migraine, will treat and re-assess. Will advance diet. VSS Objective: GENERAL: The patient is awake, alert, and fully oriented, in no acute distress. LUNGS: Breath sounds equal, clear to auscultation bilaterally, no wheezes, no crackles, no accessory muscle use. HEART: Regular rate and rhythm, S1, S2. ABDOMEN: Soft, no tenderness to palpation, non-distended, normoactive bowel sounds, no guarding, no rebound, no hepatosplenomegaly, no masses. EXTREMITIES: 2+ pulses, warm, well-perfused, no edema. Vital Signs - 24 hr 06/21/19 06/21/19 06/21/19 21:00 21:30 21:58 Temperature 99.5 F 98.8 F Pulse Rate 100 H 104 H Respiratory Rate Blood Pressure 146/89 134/96 O2 Sat by Pulse 99 Oximetry (%) 06/21/19 06/22/19 06/22/19 23:27 06:00 10:00 Temperature 98.5 F 98.2 F Pulse Rate 92 H 99 H Respiratory 20 18 Rate Blood Pressure 120/60 135/88 O2 Sat by Pulse 99 94 L Oximetry (%) 06/22/19 14:00 Temperature 98 F Pulse Rate 76 Respiratory 18 Rate Blood Pressure 116/83 O2 Sat by Pulse Oximetry (%) Microbiology 06/18/19 06:20 Blood - Peripheral Venous Blood Culture - Preliminary NO GROWTH OBTAINED AFTER 96 HOURS, INCUBATION TO CONTINUE FOR 1 DAYS. 06/18/19 06:28 Blood - Peripheral Venous Blood Culture - Preliminary NO GROWTH OBTAINED AFTER 96 HOURS, INCUBATION TO CONTINUE FOR 1 DAYS. 06/17/19 23:14 Urine - Urine Clean Catch Urine Culture - Final NO GROWTH OBTAINED Laboratory Results - last 24 hr 06/21/19 06/22/19 06/22/19 21:11 06:08 08:10 WBC 10.4 H RBC 3.27 L Hgb 10.7 L Hct 31.6 L MCV 96.4 H MCH 32.5 MCHC 33.7 RDW 12.5 Plt Count 337 MPV 7.3 L Absolute Neuts (auto) 7.6 Neutrophils % 72.9 Lymphocytes % 14.2 Monocytes % 11.3 H Eosinophils % 1.1 Basophils % 0.5 Nucleated RBC % 0 Sodium Potassium Chloride Carbon Dioxide Anion Gap BUN Creatinine Est GFR (CKD-EPI)AfAm Est GFR (CKD-EPI)NonAf POC Glucometer 105 94 Random Glucose Calcium Total Bilirubin AST ALT Alkaline Phosphatase Total Protein Albumin 06/22/19 06/22/19 06/22/19 08:10 11:50 16:19 WBC RBC Hgb Hct MCV MCH MCHC RDW Plt Count MPV Absolute Neuts (auto) Neutrophils % Lymphocytes % Monocytes % Eosinophils % Basophils % Nucleated RBC % Sodium 135 L Potassium 3.5 Chloride 101 Carbon Dioxide 23 Anion Gap 10 BUN 2.8 L* Creatinine 0.8 Est GFR (CKD-EPI)AfAm 112.53 Est GFR (CKD-EPI)NonAf 97.10 POC Glucometer 108 159 Random Glucose 83 Calcium 8.3 L Total Bilirubin 0.5 AST 18 ALT 15 Alkaline Phosphatase 98 Total Protein 7.0 Albumin 2.9 L Current Medications Generic Name Dose Route Start Last Admin Trade Name Freq PRN Reason Stop Dose Admin Acetaminophen 650 mg 06/21/19 21:55 06/22/19 14:47 Tylenol - PO 650 mg Q6H PRN Administration PAIN LEVEL 1-5 Heparin Sodium (Porcine) 5,000 unit 06/22/19 22:00 Heparin - SQ BID LIZ Piperacillin Sod/Tazobactam 50 mls @ 100 mls/hr 06/22/19 02:00 06/22/19 18:05 Sod 3.375 gm/ Dextrose IVPB 100 mls/hr Q8H-IV LIZ Administration Protocol Insulin Aspart 1 vial 06/21/19 22:00 06/22/19 16:34 Novolog Vial Sliding Scale - SQ 2 units ACHS LIZ Administration Protocol Oxycodone/Acetaminophen 1 combo 06/22/19 18:09 Percocet 5/325 - PO Q6HPO PRN PAIN LEVEL 6-10 A/p: 59 year old AA Male, h/o T2DM, who presented to the ED with RLQ abdominal pain and left sided chest pain 2/2 ruptured appendix. Sepsis (fever, leukocytosis, tachycardia) secondary to perforated appendicitis with abscess cont. IVF/IV abx/hold off CT A/P for now as patient clinically improving Serial abdominal exams, monitor VS, CBC/lytes, Morphine PRN for pain Advance diet as tolerated, Zofran/Reglan PRN for nausea Surgery consult: Dr Dubon Headache starts in R temporal region and migrates to L temporal region, no focal neuro deficits, ?2/2 migraines will treat with IV Tylenol and re-assess obtain Ct-brain to r/o ICH if MOSHER markedly worsens, send ESR to screen for ? temporal arteritis which is unlikely due to lack of eye involvement/visual disturbance and non-tender temporal region to palpation. Chest pain Resolved, EKG not showing ischemic changes, trops neg x2, cont. to monitor Type 2 DM, uncontrolled ISS, basal insulin as needed counseled on diet/exercise/weightloss and management of sugar DVT ppx: SCD
[2019-06-22] MEDS ORDERED: oxyCODONE HCL 5 MG TABLET PO PRN (18:49)
[2019-06-22] MEDS ORDERED: ACETAMINOPHEN 325 MG TABLET (FP) PO PRN (18:49)
[2019-06-22] MEDS ORDERED: guaiFENesin/CODEINE 5 ML UNIT-DOSE CUPS PO PRN (19:20)
[2019-06-22] MEDS: HEPARIN NA (PORCINE) 5,000 UNITS/ML 1ML VIAL SQ SCH (21:34)
[2019-06-23] MEDS: ACETAMINOPHEN 325 MG TABLET (FP) PO PRN ×3 (00:44→21:48)
[2019-06-23] MEDS ORDERED: PIPERACILLIN/TAZOBACTAM 3.375 GM VIAL IVPB ONE ×3 (00:51→16:53)
[2019-06-23] MEDS ORDERED: DEXTROSE 5%-WATER - 50 ML IVPB ONE ×3 (00:52→16:53)
[2019-06-23] MEDS: PIPERACILLIN/TAZOB 3.375 GM 3.375 GM in DEXTROSE 5%-WATER - 50 ML IVPB SCH ×3 (01:12→17:44)
[2019-06-23] MEDS: INSULIN SLIDING SCALE (NOVOLOG) 1 VIAL SQ SCH ×4 (06:03→21:55)
[2019-06-23 08:57] LABS: BASO % 0.4 % (0-2.0); EOS % 1.4 % (0-4.5); HEMATOCRIT 27.4 % (35.4-49); HEMOGLOBIN 9.6 GM/dL (11.7-16.9); LYMPH % 14.6 % (8-40); MCHC 35.1 g/dl (32.0-35.9); MEAN CELL VOLUME 94.1 fl (80-96); MEAN PLT VOLUME 7.1 fl (7.5-11.1); MONO % 11.2 % (3.8-10.2); NEUT % 72.4 % (42.8-82.8); PLATELET COUNT 357 K/MM3 (134-434); RBC 2.91 M/mm3 (4.00-5.60); RDW 12.4 % (11.9-15.9); WHITE BLOOD COUNT 9.6 K/mm3 (4.0-10.0)
[2019-06-23 09:21] LABS: ALBUMIN 2.8 g/dl (3.4-5.0); BILIRUBIN,TOTAL 0.4 mg/dL (0.2-1); BLOOD UREA NITROGEN 5.8 mg/dL (7-18); CALCIUM 8.4 mg/dL (8.5-10.1); CREATININE 0.9 mg/dL (0.55-1.3); POTASSIUM 3.7 mmol/L (3.5-5.1); TOT PROT 6.7 g/dl (6.4-8.2)
[2019-06-23] MEDS: HEPARIN NA (PORCINE) 5,000 UNITS/ML 1ML VIAL SQ SCH ×2 (10:03→21:49)
[2019-06-23] MEDS ORDERED: INSULIN (NOVOLOG) ASPART 100 UNITS/ML 10ML VIAL ONE (11:23)
--- NOTE | 2019-06-23 13:27 | PN ---
Physical Exam: SUBJECTIVE: Patient seen and examined. He is doing well. He has no complaints. OBJECTIVE: Vital Signs Period Temp Pulse Resp BP Sys/Stevens Pulse Ox Last 24 Hr 97.6 F-98.7 F 76-94 14-20 116-145/62-90 94-96 GENERAL: The patient is awake, alert, and fully oriented, in no acute distress. LUNGS: Breath sounds equal, clear to auscultation bilaterally, no wheezes, no crackles, no accessory muscle use. HEART: Regular rate and rhythm, S1, S2. ABDOMEN: Soft, nontender, nondistended, normoactive bowel sounds, no guarding, no rebound, no hepatosplenomegaly, no masses. EXTREMITIES: 2+ pulses, warm, well-perfused, no edema. Laboratory Results - last 24 hr 06/22/19 06/22/19 06/23/19 16:19 21:37 05:48 WBC RBC Hgb Hct MCV MCH MCHC RDW Plt Count MPV Absolute Neuts (auto) Neutrophils % Lymphocytes % Monocytes % Eosinophils % Basophils % Nucleated RBC % ESR Sodium Potassium Chloride Carbon Dioxide Anion Gap BUN Creatinine Est GFR (CKD-EPI)AfAm Est GFR (CKD-EPI)NonAf POC Glucometer 159 160 117 Random Glucose Calcium Total Bilirubin AST ALT Alkaline Phosphatase C-Reactive Protein Total Protein Albumin 06/23/19 06/23/19 06/23/19 07:50 07:50 07:50 WBC 9.6 RBC 2.91 L Hgb 9.6 L Hct 27.4 L MCV 94.1 MCH 33.0 MCHC 35.1 RDW 12.4 Plt Count 357 MPV 7.1 L Absolute Neuts (auto) 6.9 Neutrophils % 72.4 Lymphocytes % 14.6 Monocytes % 11.2 H Eosinophils % 1.4 Basophils % 0.4 Nucleated RBC % 0 ESR Sodium 138 Potassium 3.7 Chloride 104 Carbon Dioxide 25 Anion Gap 8 BUN 5.8 L Creatinine 0.9 Est GFR (CKD-EPI)AfAm 107.22 Est GFR (CKD-EPI)NonAf 92.51 POC Glucometer Random Glucose 96 Calcium 8.4 L Total Bilirubin 0.4 AST 18 ALT 15 Alkaline Phosphatase 91 C-Reactive Protein 8.9 H Total Protein 6.7 Albumin 2.8 L 06/23/19 06/23/19 07:50 11:21 WBC RBC Hgb Hct MCV MCH MCHC RDW Plt Count MPV Absolute Neuts (auto) Neutrophils % Lymphocytes % Monocytes % Eosinophils % Basophils % Nucleated RBC % ESR 113 H Sodium Potassium Chloride Carbon Dioxide Anion Gap BUN Creatinine Est GFR (CKD-EPI)AfAm Est GFR (CKD-EPI)NonAf POC Glucometer 280 Random Glucose Calcium Total Bilirubin AST ALT Alkaline Phosphatase C-Reactive Protein Total Protein Albumin Active Medications Generic Name Dose Route Start Last Admin Trade Name Freq PRN Reason Stop Dose Admin Acetaminophen 650 mg 06/21/19 21:55 06/23/19 07:52 Tylenol - PO 650 mg Q6H PRN Administration PAIN LEVEL 1-5 Acetaminophen 325 mg 06/22/19 18:49 Tylenol - PO Q6H PRN PAIN 6-10 Guaifenesin/Codeine Phosphate 5 ml 06/22/19 19:20 Robitussin Ac - PO TID PRN COUGH Heparin Sodium (Porcine) 5,000 unit 06/22/19 22:00 06/23/19 10:03 Heparin - SQ 5,000 unit BID LIZ Administration Piperacillin Sod/Tazobactam 50 mls @ 100 mls/hr 06/22/19 02:00 06/23/19 10:02 Sod 3.375 gm/ Dextrose IVPB 100 mls/hr Q8H-IV LIZ Administration Protocol Insulin Aspart 1 vial 06/21/19 22:00 06/23/19 11:24 Novolog Vial Sliding Scale - SQ 6 units ACHS LIZ Administration Protocol Oxycodone HCl 5 mg 06/22/19 18:49 Roxicodone - PO Q6H PRN PAIN 6-10 ASSESSMENT/PLAN: This is a 59 year old man with a history of type 2 DM who presented to the ED with RLQ abdominal pain and left sided chest pain. 1. Sepsis (fever, leukocytosis, tachycardia) secondary to perforated appendicitis with abscess - Continue Zosyn - Repeat CTAP shows persistent dilatation of the appendix and phlegmonous reaction which has improved, persistent edema within the cecum, no drainable fluid collections - Surgery follow-up for interval appendectomy 2. Chest pain - Resolved - Troponin negative x3 - No ischemic changes on EKG 3. Headache - Resolved - Head CT shows small focus of air within left cavernous sinus posteriorly, mild left ethmoid sinus mucosal thickening 4. Systolic murmur - Echo shows mild concentric LVH, LVEF 70%, impaired LV relaxation, normal RV , normal LA, normal RA, trace MR, trace TR 5. Type 2 DM, uncontrolled - HbA1c 9.9 - Continue Novolog sliding scale Visit type - Emergency Visit Emergency Visit: Yes ED Registration Date: 06/17/19 Care time: The patient presented to the Emergency Department on the above date and was hospitalized for further evaluation of their emergent condition. - New Patient This patient is new to me today: No - Critical Care Critical Care patient: No - Discharge Referral Referred to [facility] Med P.C.: No
[2019-06-23] MEDS ORDERED: diphenhydrAMINE HCL 25 MG CAPSULE (FP) PO ONE (22:35)
[2019-06-24] MEDS ORDERED: PIPERACILLIN/TAZOBACTAM 3.375 GM VIAL IVPB ONE ×3 (02:55→16:19)
[2019-06-24] MEDS ORDERED: DEXTROSE 5%-WATER - 50 ML IVPB ONE ×3 (02:55→16:19)
[2019-06-24] MEDS: PIPERACILLIN/TAZOB 3.375 GM 3.375 GM in DEXTROSE 5%-WATER - 50 ML IVPB SCH ×3 (02:55→17:53)
[2019-06-24] MEDS: ACETAMINOPHEN 325 MG TABLET (FP) PO PRN ×2 (06:05→11:08)
[2019-06-24] MEDS: INSULIN SLIDING SCALE (NOVOLOG) 1 VIAL SQ SCH ×4 (06:06→22:28)
[2019-06-24] MEDS: HEPARIN NA (PORCINE) 5,000 UNITS/ML 1ML VIAL SQ SCH ×2 (09:55→22:25)
[2019-06-24 10:11] LABS: BASO % 0.6 % (0-2.0); EOS % 2.3 % (0-4.5); HEMATOCRIT 28.3 % (35.4-49); HEMOGLOBIN 9.6 GM/dL (11.7-16.9); LYMPH % 21.3 % (8-40); MCH 32.6 pg (25.7-33.7); MEAN PLT VOLUME 7.1 fl (7.5-11.1); MONO % 10.6 % (3.8-10.2); NEUT % 65.2 % (42.8-82.8); PLATELET COUNT 414 K/MM3 (134-434); RBC 2.95 M/mm3 (4.00-5.60); RDW 12.3 % (11.9-15.9); WHITE BLOOD COUNT 7.7 K/mm3 (4.0-10.0)
[2019-06-24 10:34] LABS: ALBUMIN 2.7 g/dl (3.4-5.0); BILIRUBIN,TOTAL 0.2 mg/dL (0.2-1); BLOOD UREA NITROGEN 4.9 mg/dL (7-18); CALCIUM 8.3 mg/dL (8.5-10.1); PHOSPHOROUS 2.3 mg/dL (2.5-4.9); POTASSIUM 3.8 mmol/L (3.5-5.1); TOT PROT 6.6 g/dl (6.4-8.2)
--- NOTE | 2019-06-24 11:40 | PN ---
Progress Note (short form) - Note Progress Note: s: no chest pain, palps, dizziness, dyspnea Current Medications Acetaminophen (Tylenol -) 650 mg PO Q6H PRN PRN Reason: PAIN LEVEL 1-5 Last Admin: 06/24/19 11:08 Dose: 650 mg Acetaminophen (Tylenol -) 325 mg PO Q6H PRN PRN Reason: PAIN 6-10 Guaifenesin/Codeine Phosphate (Robitussin Ac -) 5 ml PO TID PRN PRN Reason: COUGH Last Admin: 06/23/19 22:03 Dose: 5 ml Heparin Sodium (Porcine) (Heparin -) 5,000 unit SQ BID LIZ Last Admin: 06/24/19 09:55 Dose: 5,000 unit Piperacillin Sod/Tazobactam (Sod 3.375 gm/ Dextrose) 50 mls @ 100 mls/hr IVPB Q8H-IV LIZ; Protocol Last Admin: 06/24/19 09:56 Dose: 100 mls/hr Insulin Aspart (Novolog Vial Sliding Scale -) 1 vial SQ ACHS [facility]; Protocol Last Admin: 06/24/19 11:08 Dose: 4 units Oxycodone HCl (Roxicodone -) 5 mg PO Q6H PRN PRN Reason: PAIN 6-10 Vital Signs Period Temp Pulse Resp BP Sys/Stevens Pulse Ox Last 24 Hr 98.2 F-98.6 F 84-99 18-18 127-157/64-92 96-98 Constitutional: Yes: Well Nourished, No Distress Eyes: No: Sclera Icterus Respiratory: Yes: CTA Bilaterally. No: Accessory Muscle Use, Rales, Wheezes Gastrointestinal: Yes: Normal Bowel Sounds. No: Distention, Hepatomegaly, Palpable Mass, Tenderness Cardiovascular: Yes: Regular Rate and Rhythm JVD: No Carotid Bruit: No PMI: Non-Displaced Heart Sounds: Yes: S1, S2. No: Gallop Murmur: Yes: Systolic Murmur (brief CARISSA at apex (2/6) > RUSB). No: Diastolic Murmur Musculoskeletal: Yes: Other (No kyphosis) Extremities: No: Cool, Cyanosis Edema: No Peripheral Pulses: 2+ Left Carotid, 2+ Right Carotid, 2+ Left Doralis Pedis, 2+ Right Dorsalis Pedis Integumentary: No: Jaundice Neurological: Yes: Alert, Oriented (x3) Psychiatri: No: Agitated Assessment/Plan ECG #1: sinus tach, LAFB, no path q's, no ST-T #2: no change CXR: clear lungs/pleura echo 06/2019 nl LV function, mild conc LVH, nl RV, tr MR, tr TR appendicitis, ruptured/preop CV eval - manage per surgery - Revised CVRI = 0, normal functional capacity. no s/sx of active ischemia/chf. pt is at acceptable CV risk for invasive procedures/anesthesia if needed per surgery/IR chest pain: -acute on chronic sx's - now resolved -trop neg x 3 -ecg nonischemic -longstanding sx, c/w gas/bloating--relieved by passing gas. no new features. -defer stress testing murmur: -soft murmur, unusual features/locatoin. -echo unremarkable -outpt f/u rec'd with us--he agrees elevated BP - no prior hx HTN - has had some elevated BPs here, generally controlled - defer starting antihypertensive for now, monitor BP
--- NOTE | 2019-06-24 13:54 | PN ---
Physical Exam: SUBJECTIVE: Patient seen and examined. He has no complaints. OBJECTIVE: Vital Signs Period Temp Pulse Resp BP Sys/Stevens Pulse Ox Last 24 Hr 98.2 F-98.6 F 84-99 18-18 127-157/64-92 96-98 GENERAL: The patient is awake, alert, and fully oriented, in no acute distress. LUNGS: Breath sounds equal, clear to auscultation bilaterally, no wheezes, no crackles, no accessory muscle use. HEART: Regular rate and rhythm, S1, S2. ABDOMEN: Soft, nontender, nondistended, normoactive bowel sounds, no guarding, no rebound, no hepatosplenomegaly, no masses. EXTREMITIES: 2+ pulses, warm, well-perfused, no edema. Laboratory Results - last 24 hr 06/23/19 06/23/19 06/24/19 16:32 21:53 06:04 WBC RBC Hgb Hct MCV MCH MCHC RDW Plt Count MPV Absolute Neuts (auto) Neutrophils % Lymphocytes % Monocytes % Eosinophils % Basophils % Nucleated RBC % Sodium Potassium Chloride Carbon Dioxide Anion Gap BUN Creatinine Est GFR (CKD-EPI)AfAm Est GFR (CKD-EPI)NonAf POC Glucometer 226 170 119 Random Glucose Calcium Phosphorus Magnesium Total Bilirubin AST ALT Alkaline Phosphatase Total Protein Albumin 06/24/19 06/24/19 06/24/19 09:35 09:35 11:03 WBC 7.7 RBC 2.95 L Hgb 9.6 L Hct 28.3 L MCV 96.0 MCH 32.6 MCHC 34.0 RDW 12.3 Plt Count 414 MPV 7.1 L Absolute Neuts (auto) 5.0 Neutrophils % 65.2 Lymphocytes % 21.3 D Monocytes % 10.6 H Eosinophils % 2.3 Basophils % 0.6 Nucleated RBC % 0 Sodium 137 Potassium 3.8 Chloride 104 Carbon Dioxide 26 Anion Gap 7 L BUN 4.9 L Creatinine 1.0 Est GFR (CKD-EPI)AfAm 94.39 Est GFR (CKD-EPI)NonAf 81.44 POC Glucometer 239 Random Glucose 273 H Calcium 8.3 L Phosphorus 2.3 L Magnesium 2.0 Total Bilirubin 0.2 AST 15 ALT 14 Alkaline Phosphatase 88 Total Protein 6.6 Albumin 2.7 L Active Medications Generic Name Dose Route Start Last Admin Trade Name Freq PRN Reason Stop Dose Admin Acetaminophen 650 mg 06/21/19 21:55 06/24/19 11:08 Tylenol - PO 650 mg Q6H PRN Administration PAIN LEVEL 1-5 Acetaminophen 325 mg 06/22/19 18:49 Tylenol - PO Q6H PRN PAIN 6-10 Guaifenesin/Codeine Phosphate 5 ml 06/22/19 19:20 06/23/19 22:03 Robitussin Ac - PO 5 ml TID PRN Administration COUGH Heparin Sodium (Porcine) 5,000 unit 06/22/19 22:00 06/24/19 09:55 Heparin - SQ 5,000 unit BID LIZ Administration Piperacillin Sod/Tazobactam 50 mls @ 100 mls/hr 06/22/19 02:00 06/24/19 09:56 Sod 3.375 gm/ Dextrose IVPB 100 mls/hr Q8H-IV LIZ Administration Protocol Insulin Aspart 1 vial 06/21/19 22:00 06/24/19 11:08 Novolog Vial Sliding Scale - SQ 4 units ACHS LIZ Administration Protocol Oxycodone HCl 5 mg 06/22/19 18:49 Roxicodone - PO Q6H PRN PAIN 6-10 ASSESSMENT/PLAN: This is a 59 year old man with a history of type 2 DM who presented to the ED with RLQ abdominal pain and left sided chest pain. 1. Sepsis (fever, leukocytosis, tachycardia) secondary to perforated appendicitis with abscess - Afebrile, WBC normal - Continue Zosyn - Repeat CTAP shows persistent dilatation of the appendix and phlegmonous reaction which has improved, persistent edema within the cecum, no drainable fluid collections - Surgery follow-up for interval appendectomy 2. Chest pain - Resolved - Troponin negative x3 - No ischemic changes on EKG 3. Headache - Resolved - Head CT shows small focus of air within left cavernous sinus posteriorly, mild left ethmoid sinus mucosal thickening 4. Systolic murmur - Echo shows mild concentric LVH, LVEF 70%, impaired LV relaxation, normal RV , normal LA, normal RA, trace MR, trace TR 5. Type 2 DM, uncontrolled - HbA1c 9.9 - Continue Novolog sliding scale 6. Hypophosphatemia - Supplement phosphorus 7. Anemia - Likely secondary to sepsis - Hgb stable - Check iron studies, TSH, B12, folate, stool occult blood Visit type - Emergency Visit Emergency Visit: Yes ED Registration Date: 06/17/19 Care time: The patient presented to the Emergency Department on the above date and was hospitalized for further evaluation of their emergent condition. - New Patient This patient is new to me today: No - Critical Care Critical Care patient: No - Discharge Referral Referred to [facility] Med P.C.: No
[2019-06-24] MEDS ORDERED: NAPH,MB-DB/K PH,MBDB POWDER PACKET PO ONE (17:06)
[2019-06-25] MEDS ORDERED: PIPERACILLIN/TAZOBACTAM 3.375 GM VIAL IVPB ONE ×2 (01:10→10:20)
[2019-06-25] MEDS ORDERED: DEXTROSE 5%-WATER - 50 ML IVPB ONE ×2 (01:10→10:21)
[2019-06-25] MEDS: PIPERACILLIN/TAZOB 3.375 GM 3.375 GM in DEXTROSE 5%-WATER - 50 ML IVPB SCH ×2 (01:19→10:22)
[2019-06-25] MEDS: ACETAMINOPHEN 325 MG TABLET (FP) PO PRN (05:12)
[2019-06-25 06:09] VITALS: TEMP 98.4
[2019-06-25] MEDS: INSULIN SLIDING SCALE (NOVOLOG) 1 VIAL SQ SCH (06:25)
--- NOTE | 2019-06-25 07:25 | PN ---
Physical Exam: SUBJECTIVE: Patient seen and examined no acute events ove rnight RLQ pain improved , just asking for tyelnol for headache , denies any fever, chills, N/V/D/C complain of some headach, frontal , pulsating not improving with tylenol will Ct head and do esr , crp , dc home on augmentin for 10 days and follow up with surgery OBJECTIVE: Vital Signs Period Temp Pulse Resp BP Sys/Stevens Pulse Ox Last 24 Hr 97.7 F-98.4 F 85-92 18-18 126-157/62-90 98-98 GENERAL: AAOx3 in NAD HEAD: NC/AT EYES: EOMI, Conjunctiva clear, sclera anicteric ENT: moist mucous membrane NECK: Supple, no JVD LUNGS: CTA B/L, no crackles no wheezing no accessory muscle use. HEART: RRR, , normal s1, s2,2/6 systolic murmur LUSB and LLSB ABDOMEN: Soft, ND, NT, +BS 4 Q, no CVA Tenderness LOWER EXTREMITIES: no edema, +2DP pulse, NEUROLOGICAL: No focal deficit. Normal speech. gait not observed. PSYCHIATRIC: Cooperative. Good eye contact. Appropriate mood and affect. SKIN: Warm, dry, Laboratory Results - last 24 hr 06/24/19 06/24/19 06/24/19 09:35 09:35 11:03 WBC 7.7 RBC 2.95 L Hgb 9.6 L Hct 28.3 L MCV 96.0 MCH 32.6 MCHC 34.0 RDW 12.3 Plt Count 414 MPV 7.1 L Absolute Neuts (auto) 5.0 Neutrophils % 65.2 Lymphocytes % 21.3 D Monocytes % 10.6 H Eosinophils % 2.3 Basophils % 0.6 Nucleated RBC % 0 Sodium 137 Potassium 3.8 Chloride 104 Carbon Dioxide 26 Anion Gap 7 L BUN 4.9 L Creatinine 1.0 Est GFR (CKD-EPI)AfAm 94.39 Est GFR (CKD-EPI)NonAf 81.44 POC Glucometer 239 Random Glucose 273 H Calcium 8.3 L Phosphorus 2.3 L Magnesium 2.0 Total Bilirubin 0.2 AST 15 ALT 14 Alkaline Phosphatase 88 Total Protein 6.6 Albumin 2.7 L 06/24/19 06/24/19 06/25/19 16:58 22:27 06:24 WBC RBC Hgb Hct MCV MCH MCHC RDW Plt Count MPV Absolute Neuts (auto) Neutrophils % Lymphocytes % Monocytes % Eosinophils % Basophils % Nucleated RBC % Sodium Potassium Chloride Carbon Dioxide Anion Gap BUN Creatinine Est GFR (CKD-EPI)AfAm Est GFR (CKD-EPI)NonAf POC Glucometer 187 210 101 Random Glucose Calcium Phosphorus Magnesium Total Bilirubin AST ALT Alkaline Phosphatase Total Protein Albumin Active Medications Generic Name Dose Route Start Last Admin Trade Name Freq PRN Reason Stop Dose Admin Acetaminophen 650 mg 06/21/19 21:55 06/25/19 05:12 Tylenol - PO 650 mg Q6H PRN Administration PAIN LEVEL 1-5 Acetaminophen 325 mg 06/22/19 18:49 06/24/19 15:35 Tylenol - PO 325 mg Q6H PRN Administration PAIN 6-10 Heparin Sodium (Porcine) 5,000 unit 06/22/19 22:00 06/24/19 22:25 Heparin - SQ 5,000 unit BID ILZ Administration Piperacillin Sod/Tazobactam 50 mls @ 100 mls/hr 06/22/19 02:00 06/25/19 01:19 Sod 3.375 gm/ Dextrose IVPB 100 mls/hr Q8H-IV LIZ Administration Protocol Insulin Aspart 1 vial 06/21/19 22:00 06/25/19 06:25 Novolog Vial Sliding Scale - SQ Not Given ACHS LIZ Protocol Oxycodone HCl 5 mg 06/22/19 18:49 06/24/19 15:35 Roxicodone - PO 5 mg Q6H PRN Administration PAIN 6-10 CT A/P with IV and oral contrast Jun IMPRESSION: Acute appendicitis with improved findings as compared to prior imaging. Persistent dilatation of the appendix and phlegmonous reaction which has improved. Persistent edema within the cecum. No drainable fluid collections seen. ASSESSMENT/PLAN: 59 year old male with PMH of DM. He presented to the ER with complaints of RLQ abdominal pain for the past 2 days and intermittent left sided chest pain that he has had for the past several months, more frequent for the past 5 days. Found to have perforated appendicitis on CT AP. #sepsis 2/2 Perforated appendicitis, improving * CT AP: Ruptured appendicitis, phlegmon formation, no free air, Appendicial perforation with phlegmon and with no signs of free perforation, peritonitis, or abscess may initially be managed conservatively * cont zosyn, ID on board * Surgery and IR on board * IR no need for intervention as there is no collection * surgery to decide after abx when to operate Dr. Ayala * dc IV fluids * Pain control with morphine * follow cx * type and screen , PT, PTT for possible surgery * advance diet * Repeat Ct A/P with IV and oral contrast noted above : appendicities , phlegmon and widended appendix ,improved compare to previose images # Headache : likley migrain but will r.o any other serious condition will do Ct head and ESR/CRP in Am if Ct negative will give exedrin #Chest pain * Trop negative x 2 * , EKG shows sinus tachy with no ST, T wave abnormalities * DC Tele * Cardio consult placed # Soft murmur with no specific location and character marty mojica stesing per cardiology # DM * BGM, ISS ACHS * HbA1c 9.9 * start metformin 1000 BID #FEN * dc fluids * monitor lytes and replenished as needed * clear liquid diet #DVT proph * SCDs, Holding chemical AC Visit type - Emergency Visit Emergency Visit: Yes ED Registration Date: 06/17/19 Care time: The patient presented to the Emergency Department on the above date and was hospitalized for further evaluation of their emergent condition. - New Patient This patient is new to me today: No - Critical Care Critical Care patient: No - Discharge Referral Referred to [facility] No ATTENDING PHYSICIAN STATEMENT I saw and evaluated the patient. I reviewed the resident's note and discussed the case with the resident. I agree with the resident's findings and plan as documented. SUBJECTIVE: OBJECTIVE: ASSESSMENT AND PLAN:
[2019-06-25 08:22] LABS: HEMATOCRIT 29.1 % (35.4-49); MCH 32.5 pg (25.7-33.7); MCHC 34.4 g/dl (32.0-35.9); MEAN CELL VOLUME 94.7 fl (80-96); MEAN PLT VOLUME 6.7 fl (7.5-11.1); PLATELET COUNT 530 K/MM3 (134-434); RBC 3.08 M/mm3 (4.00-5.60); RDW 12.4 % (11.9-15.9); WHITE BLOOD COUNT 7.1 K/mm3 (4.0-10.0)
[2019-06-25 09:20] LABS: BLOOD UREA NITROGEN 5.6 mg/dL (7-18); CALCIUM 8.8 mg/dL (8.5-10.1); CREATININE 0.9 mg/dL (0.55-1.3); POTASSIUM 4.1 mmol/L (3.5-5.1)
--- NOTE | 2019-06-25 10:01 | PN ---
Progress Note (short form) - Note Progress Note: GENERAL SURGERY 59 yo male admitted with RLQ abd pain. CT Scan confirmed perforated appendix with abscess. Developed sepsis (fever, leukocytosis, tachycardia) secondary to perforated appendicitis with abscess. Pateint has remained in the hospital and being managed conservatively with IV ABX and pain management. His labs have been followed on a daily basis and making sure his WBC trends down. He had a repeat CTAP shows persistent dilatation of the appendix and phlegmonous reaction which has improved, persistent edema within the cecum, no drainable fluid collections. This morning, found patient in his room dressed in his civillian attire, wating to be discharged. States he is ambulating unassisted. Tolerating PO diet. Passing flatus and having solid BMs. Denies n/v/f/c, CP, SOB, SUN, melana, hematochazia or hematuria. AVSS. Afebrile. Gen: A&O. NAD ABD: Soft. No abd discomfort on palpation Problem List - Problems (1) Acute appendicitis with appendiceal abscess Assessment/Plan: 59 yo male with perforated appendix and abscess formation not ammendable to IR drainage. He has been managed successful in conservative fashion. Patient is cleared for discharge bryon on PO abx as per ID Patient instructed to follow-up with Dr. Abner Shelby in 6 weeks and begin process for elective interval appendectomy. On behalf of Dr. Shelby, thank you for the opportunity to participate in your patient's care. Code(s): K35.33 - ACUTE APPENDICITIS WITH PERF AND LOC PERITONITIS, WITH ABSCS
--- NOTE | 2019-06-25 11:31 | PN ---
Progress Note (short form) - Note Progress Note: s: no chest pain, palps, dizziness, dyspnea Current Medications Acetaminophen (Tylenol -) 650 mg PO Q6H PRN PRN Reason: PAIN LEVEL 1-5 Last Admin: 06/25/19 05:12 Dose: 650 mg Heparin Sodium (Porcine) (Heparin -) 5,000 unit SQ BID LIZ Last Admin: 06/24/19 22:25 Dose: 5,000 unit Piperacillin Sod/Tazobactam (Sod 3.375 gm/ Dextrose) 50 mls @ 100 mls/hr IVPB Q8H-IV LIZ; Protocol Last Admin: 06/25/19 10:22 Dose: 100 mls/hr Insulin Aspart (Novolog Vial Sliding Scale -) 1 vial SQ ACHS LIZ; Protocol Last Admin: 06/25/19 06:25 Dose: Not Given Metformin HCl (Glucophage -) 1,000 mg PO BID@0700,1630 LIZ Oxycodone HCl (Roxicodone -) 5 mg PO Q6H PRN PRN Reason: PAIN 6-10 Last Admin: 06/24/19 15:35 Dose: 5 mg Vital Signs Period Temp Pulse Resp BP Sys/Stevens Pulse Ox Last 24 Hr 97.7 F-98.4 F 85-91 18-18 126-143/62-88 98 Constitutional: Yes: Well Nourished, No Distress Eyes: No: Sclera Icterus Respiratory: Yes: CTA Bilaterally. No: Accessory Muscle Use, Rales, Wheezes Gastrointestinal: Yes: Normal Bowel Sounds. No: Distention, Hepatomegaly, Palpable Mass, Tenderness Cardiovascular: Yes: Regular Rate and Rhythm JVD: No Carotid Bruit: No PMI: Non-Displaced Heart Sounds: Yes: S1, S2. No: Gallop Murmur: Yes: Systolic Murmur (brief CARISSA at apex (2/6) > RUSB). No: Diastolic Murmur Musculoskeletal: Yes: Other (No kyphosis) Extremities: No: Cool, Cyanosis Edema: No Peripheral Pulses: 2+ Left Carotid, 2+ Right Carotid, 2+ Left Doralis Pedis, 2+ Right Dorsalis Pedis Integumentary: No: Jaundice Neurological: Yes: Alert, Oriented (x3) Psychiatri: No: Agitated Assessment/Plan ECG #1: sinus tach, LAFB, no path q's, no ST-T #2: no change CXR: clear lungs/pleura echo 06/2019 nl LV function, mild conc LVH, nl RV, tr MR, tr TR appendicitis, ruptured/preop CV eval - manage per surgery - no further procedures planned chest pain: -acute on chronic sx's - now resolved -trop neg x 3 -ecg nonischemic -longstanding sx, c/w gas/bloating--relieved by passing gas. no new features. -defer stress testing murmur: -soft murmur, unusual features/locatoin. -echo unremarkable -outpt f/u rec'd with us--he agrees elevated BP - no prior hx HTN - has had some elevated BPs here, generally controlled - defer starting antihypertensive for now, monitor BP
--- NOTE | 2019-06-25 11:57 | PN ---
Progress Note, Physician History of Present Illness: AWAKE, ALERT DOING EXERCISES (SQUATS) AT BEDSIDE NO C/O ABDOMINAL PAIN TOLERATING SOLID DIET +BMS NO FEVER/ CHILLS AFEBRILE WBC WNL C/S (-) CT IMPROVED - Current Medication List Current Medications: Active Medications Acetaminophen (Tylenol -) 650 mg PO Q6H PRN PRN Reason: PAIN LEVEL 1-5 Last Admin: 06/25/19 05:12 Dose: 650 mg Heparin Sodium (Porcine) (Heparin -) 5,000 unit SQ BID COUNT INCLUDES THE [facility] Last Admin: 06/24/19 22:25 Dose: 5,000 unit Insulin Aspart (Novolog Vial Sliding Scale -) 1 vial SQ ACHS COUNT INCLUDES THE [facility]; Protocol Last Admin: 06/25/19 06:25 Dose: Not Given Metformin HCl (Glucophage -) 1,000 mg PO BID@0700,1630 LIZ Oxycodone HCl (Roxicodone -) 5 mg PO Q6H PRN PRN Reason: PAIN 6-10 Last Admin: 06/24/19 15:35 Dose: 5 mg - Objective Vital Signs: Vital Signs Temperature 98.4 F 06/25/19 06:00 Pulse Rate 86 06/25/19 06:00 Respiratory Rate 18 06/25/19 06:00 Blood Pressure 134/88 06/25/19 06:00 O2 Sat by Pulse Oximetry (%) 98 06/24/19 21:00 Constitutional: Yes: No Distress Eyes: Yes: Conjunctiva Clear Cardiovascular: Yes: Regular Rate and Rhythm, S1, S2 Respiratory: Yes: CTA Bilaterally Gastrointestinal: Yes: Normal Bowel Sounds, Soft. No: Tenderness Edema: No Labs: CBC, BMP 06/25/19 07:18 06/25/19 07:18 INR, PTT INR 1.17 (0.83-1.09) H 06/18/19 06:20 Assessment/Plan S/P PERFORATED APPENDIX PHLEGMON W/O DRAINABLE ABSCESS SUBSTITUTE AUGMENTIN 875 MG PO BID X 10D OUTPATIENT SURGICAL F/U
[2019-06-25 12:06] VITALS: BP 125/77; PULSE 99
--- NOTE | 2019-06-25 12:37 | DS ---
Physical Exam: SUBJECTIVE: Patient seen and examined at bed side , stable with no comlain , walking in whole way , deneis any feer, chills or abdominal pain , asking to go home , tolerating diet , pt is hemodynamically stable to go home with 10 days of augmentine po BID and will folow with surgery for elective surgery to remove the appendix. OBJECTIVE: Vital Signs Period Temp Pulse Resp BP Sys/Stevens Pulse Ox Last 24 Hr 97.7 F-98.4 F 85-99 18-18 125-143/62-88 98 PHYSICAL EXAM GENERAL: AAOx3 in NAD HEAD: NC/AT EYES: EOMI, Conjunctiva clear, sclera anicteric ENT: moist mucous membrane NECK: Supple, no JVD LUNGS: CTA B/L, no crackles no wheezing no accessory muscle use. HEART: RRR, , normal s1, s2,2/6 systolic murmur LUSB and LLSB ABDOMEN: Soft, ND, RLQ Tenderness, +BS 4 Q, no CVA Tenderness LOWER EXTREMITIES: no edema, +2DP pulse, NEUROLOGICAL: No focal deficit. Normal speech. gait not observed. PSYCHIATRIC: Cooperative. Good eye contact. Appropriate mood and affect. SKIN: Warm, dry, LABS Laboratory Results - last 24 hr 06/24/19 06/24/19 06/25/19 16:58 22:27 06:24 WBC RBC Hgb Hct MCV MCH MCHC RDW Plt Count MPV Sodium Potassium Chloride Carbon Dioxide Anion Gap BUN Creatinine Est GFR (CKD-EPI)AfAm Est GFR (CKD-EPI)NonAf POC Glucometer 187 210 101 Random Glucose Calcium Iron TIBC Iron Saturation Unsaturated IBC Ferritin Vitamin B12 Serum Folate TSH 06/25/19 06/25/19 06/25/19 07:18 07:18 11:59 WBC 7.1 RBC 3.08 L Hgb 10.0 L Hct 29.1 L MCV 94.7 MCH 32.5 MCHC 34.4 RDW 12.4 Plt Count 530 H D MPV 6.7 L Sodium 136 Potassium 4.1 Chloride 104 Carbon Dioxide 26 Anion Gap 7 L BUN 5.6 L Creatinine 0.9 Est GFR (CKD-EPI)AfAm 107.22 Est GFR (CKD-EPI)NonAf 92.51 POC Glucometer 188 Random Glucose 100 Calcium 8.8 Iron 65 TIBC 239 L Iron Saturation 27 Unsaturated IBC 174 L Ferritin 104.0 Vitamin B12 907 Serum Folate 18 H TSH 2.48 CBC, BMP 06/25/19 07:18 06/25/19 07:18 CT A/P with IV and oral contrast Jun IMPRESSION: Acute appendicitis with improved findings as compared to prior imaging. Persistent dilatation of the appendix and phlegmonous reaction which has improved. Persistent edema within the cecum. No drainable fluid collections seen. HOSPITAL COURSE: Date of Admission:06/17/19 Date of Discharge: 06/25/19 This is a 59 year old man with a history of type 2 DM who presented to the ED with RLQ abdominal pain and left sided chest pain. 1. Sepsis (fever, leukocytosis, tachycardia) secondary to perforated appendicitis with abscess - Afebrile, WBC normal - Continue Zosyn - Repeat CTAP shows persistent dilatation of the appendix and phlegmonous reaction which has improved, persistent edema within the cecum, no drainable fluid collections - Surgery follow-up for interval appendectomy 2. Chest pain - Resolved - Troponin negative x3 - No ischemic changes on EKG 3. Headache - Resolved - Head CT shows small focus of air within left cavernous sinus posteriorly, mild left ethmoid sinus mucosal thickening 4. Systolic murmur - Echo shows mild concentric LVH, LVEF 70%, impaired LV relaxation, normal RV , normal LA, normal RA, trace MR, trace TR 5. Type 2 DM, uncontrolled - HbA1c 9.9 - Continue Novolog sliding scale 6. Hypophosphatemia - Supplement phosphorus 7. Anemia - Likely secondary to sepsis - Hgb stable - Check iron studies, TSH, B12, folate, stool occult blood Minutes to complete discharge: 45 Discharge Summary Problems reviewed: Yes Reason For Visit: CHEST PAIN Current Active Problems Anemia (Acute) Appendicitis (Acute) Murmur, cardiac (Chronic) Condition: Stable - Instructions Diet, Activity, Other Instructions: you presented to the hospital due to sever abdominal pain and you were found to have inflammation in your appendix with perforation , you have been treated with fluids and antibiotics and your symptoms has improved you will discharged home with 10 days of Antibiotics called Augemtine 875 mg twice daily please take it with food you need to follow up with the surgeon Dr Montejo within 2 weeks to decide for surgery to remove the appendix your hemoglobin A1c was elevated 9.9 and that reflect diabetes you will be started on metformin 1000 twice daily to control your blood sugar you need to measure your blood sugar daily and record the number s and bring it to your primary you can resume your diet as before admission you need to follow diabetic diet , avoid carbohydrate and increase vegetable and protein in your diet you were found to have anemia, to need to follow up with your primary as out pt and repeat blood count within one week you need to measure your blood pressure at home at rest and bring the numbers to your primary physician you referred to [facility] (Wilber Jordan MD Tuesday ) as primary care physician you can use tylenol as needed for headache. you also were found to have heart murmur and you need to follow up with cardiology Dr Roger leavtit as out patient please resume all other home meds as before admission If you develop any fever, chills, nausea or sever abdominal pain or chest pain please call 911 or return to emergency room Referrals: Paul Dykes MD [Staff Physician] - 1 Week Joby Duran MD [Staff Physician] - 1 Month Abner Ayala [Staff Physician] - 2 Weeks Disposition: HOME - Home Medications Comprehensive Discharge Medication List: Ambulatory Orders Acetaminophen [Tylenol .Regular Strength -] 325 mg PO Q6H PRN tablet 06/25/19 Amox-Tr/K Cl [Augmentin 875-125mg Tablet -] 1 tab PO BID@0800,1730 #20 tablet Miscellaneous [employer] [Glucometer Device] 1 each SQ ASDIR #1 kit Misc[employer] [Glucometer Test Strips #100] 1 each SQ ASDIR #1 box 06/25/19 Miscellaneous Medical Supply [Lancets] 1 each SQ ASDIR #1 box 06/25/19 Miscellaneous Medical Supply [Outpatient Order] 1 each ASDIR #1 misc metFORMIN HCL [Glucophage -] 1,000 mg PO BID@0700,1630 #60 tablet 06/25/19 This patient is new to me today: No Emergency Visit: Yes ED Registration Date: 06/17/19 Care time: The patient presented to the Emergency Department on the above date and was hospitalized for further evaluation of their emergent condition. Critical Care patient: No - Discharge Referral Referred to [facility] No ATTENDING PHYSICIAN STATEMENT I saw and evaluated the patient. I reviewed the resident's note and discussed the case with the resident. I agree with the resident's findings and plan as documented. SUBJECTIVE: OBJECTIVE: ASSESSMENT AND PLAN:
--- NOTE | 2019-06-25 14:15 | PN ---
Teaching Attending Note Name of Resident: Wilber Jordan ATTENDING PHYSICIAN STATEMENT I saw and evaluated the patient. I reviewed the resident's note and discussed the case with the resident. I agree with the resident's findings and plan as documented. SUBJECTIVE: Patient seen and examined bedside. feels better, pain free. to be discharged today with Augmentin 875 BIDx10 day course, follow up with Surgery and ID clinics. Objective: GENERAL: The patient is awake, alert, and fully oriented, in no acute distress. LUNGS: Breath sounds equal, clear to auscultation bilaterally, no wheezes, no crackles, no accessory muscle use. HEART: Regular rate and rhythm, S1, S2. ABDOMEN: Soft, no tenderness to palpation, non-distended, normoactive bowel sounds, no guarding, no rebound, no hepatosplenomegaly, no masses. EXTREMITIES: 2+ pulses, warm, well-perfused, no edema. Ambulatory without assistance. Vital Signs - 24 hr 06/24/19 06/24/19 06/25/19 19:56 21:00 06:00 Temperature 97.7 F 98.4 F Pulse Rate 91 H 86 Respiratory 18 18 Rate Blood Pressure 143/62 134/88 O2 Sat by Pulse 98 Oximetry (%) 06/25/19 10:00 Temperature Pulse Rate 99 H Respiratory 18 Rate Blood Pressure 125/77 O2 Sat by Pulse Oximetry (%) Microbiology 06/18/19 06:28 Blood - Peripheral Venous Blood Culture - Final NO GROWTH AFTER 5 DAYS INCUBATION 06/18/19 06:20 Blood - Peripheral Venous Blood Culture - Final NO GROWTH AFTER 5 DAYS INCUBATION 06/17/19 23:14 Urine - Urine Clean Catch Urine Culture - Final NO GROWTH OBTAINED Laboratory Results - last 24 hr 06/24/19 06/24/19 06/25/19 16:58 22:27 06:24 WBC RBC Hgb Hct MCV MCH MCHC RDW Plt Count MPV Sodium Potassium Chloride Carbon Dioxide Anion Gap BUN Creatinine Est GFR (CKD-EPI)AfAm Est GFR (CKD-EPI)NonAf POC Glucometer 187 210 101 Random Glucose Calcium Iron TIBC Iron Saturation Unsaturated IBC Ferritin Vitamin B12 Serum Folate TSH 06/25/19 06/25/19 06/25/19 07:18 07:18 11:59 WBC 7.1 RBC 3.08 L Hgb 10.0 L Hct 29.1 L MCV 94.7 MCH 32.5 MCHC 34.4 RDW 12.4 Plt Count 530 H D MPV 6.7 L Sodium 136 Potassium 4.1 Chloride 104 Carbon Dioxide 26 Anion Gap 7 L BUN 5.6 L Creatinine 0.9 Est GFR (CKD-EPI)AfAm 107.22 Est GFR (CKD-EPI)NonAf 92.51 POC Glucometer 188 Random Glucose 100 Calcium 8.8 Iron 65 TIBC 239 L Iron Saturation 27 Unsaturated IBC 174 L Ferritin 104.0 Vitamin B12 907 Serum Folate 18 H TSH 2.48 Home Medications Medication Instructions Recorded Acetaminophen [Tylenol .Regular 325 mg PO Q6H PRN tablet 06/25/19 Strength -] Amox-Tr/K Cl [Augmentin 875-125mg 1 tab PO BID@0800,1730 #20 tablet 06/25/19 Tablet -] Miscellaneous Medical Supply 1 each SQ ASDIR #1 kit 06/25/19 [Glucometer Device] Miscellaneous Medical Supply 1 each SQ ASDIR #1 box 06/25/19 [Glucometer Test Strips #100] Miscellaneous Medical Supply 1 each SQ ASDIR #1 box 06/25/19 [Lancets] Miscellaneous Medical Supply 1 each ASDIR #1 misc 06/25/19 [Outpatient Order] metFORMIN HCL [Glucophage -] 1,000 mg PO BID@0700,1630 #60 06/25/19 tablet Current Medications Generic Name Dose Route Start Last Admin Trade Name Freq PRN Reason Stop Dose Admin Acetaminophen 650 mg 06/21/19 21:55 06/25/19 05:12 Tylenol - PO 650 mg Q6H PRN Administration PAIN LEVEL 1-5 Amoxicillin/Clavulanate Potassium 1 tab 06/25/19 17:30 Augmentin - 875mg Tablet PO BID@0800,1730 [facility] Heparin Sodium (Porcine) 5,000 unit 06/22/19 22:00 06/24/19 22:25 Heparin - SQ 5,000 unit BID LIZ Administration Insulin Aspart 1 vial 06/21/19 22:00 06/25/19 06:25 Novolog Vial Sliding Scale - SQ Not Given ACHS [facility] Protocol Metformin HCl 1,000 mg 06/25/19 16:30 Glucophage - PO BID@0700,1630 [facility] Oxycodone HCl 5 mg 06/22/19 18:49 06/24/19 15:35 Roxicodone - PO 5 mg Q6H PRN Administration PAIN 6-10 A/p: 59 year old AA Male, h/o T2DM, who presented to the ED with RLQ abdominal pain and left sided chest pain 2/2 ruptured appendix. Sepsis (fever, leukocytosis, tachycardia) secondary to perforated appendicitis with phlemon discharge with PO Augmentin 875mg BID x10 days follow with Surgery clinic Headache resolved, likely 2/2 cervical strain/radiculopathy CT-brain neg. for ICH/pathology Tylenol PRN Chest pain resolved follow with PCP Type 2 DM, uncontrolled DC with Metformin BID endorses history of DM 2 for 5 years follow with PCP appointment on Tuesday DC home with appropriate appointments.
[2019-06-25] MEDS ORDERED: metFORMIN HCL 500 MG TABLET (FP) PO SCH (16:30)
[2019-06-25] MEDS ORDERED: AMOX TR/POT CLAV 875MG/125MG TABLETS (FP) PO SCH (17:30)
== END 2019-06-25 15:00 | disposition home or self-care (01) | DRG 371 ==
LOC: JER 16:37 → JERBED 19:11 → J4W 06-18 14:43 → J6S 06-21 22:31
PROVIDERS: ADMIT Internal Medicine
DX: K35.33 Acute appendicitis with perforation, localized peritonitis, and gangrene, with abscess (principal); A41.9 Sepsis, unspecified organism; R65.20 Severe sepsis without septic shock; R01.1 Cardiac murmur, unspecified; R00.0 Tachycardia, unspecified; I95.9 Hypotension, unspecified; R10.31 Right lower quadrant pain; E11.9 Type 2 diabetes mellitus without complications; E83.39 Other disorders of phosphorus metabolism; D64.9 Anemia, unspecified; R07.9 Chest pain, unspecified; Z79.84 Long term (current) use of oral hypoglycemic drugs; R51 Headache
CPT/HCPCS: 36415; 70450-TC; 71045-TC-FY; 74177-TC; 80048; 80053; 81003; 82550; 82607; 82728; 82746; 82962; 83036; 83540; 83550; 83605; 83735; 84100; 84443; 84484; 85025; 85027; 85610; 85651; 85730; 86140; 86850; 86900; 86901; 87040; 87086; 87804; 93005; 93010; 93306-TC; 99285-25; J0131; J1644; J7030; Q9967